=== PATIENT | female | born 1935 | race African-American/Black ===

== ENCOUNTER → 2016-08-17 | Outpatient (CLI) | payer MEDICARE, OTHER ==
--- NOTE | 2016-08-17 16:39 | WOMENS IMAGING REPORT ---
EXAM DESCRIPTION: BILAT SCREENING MAMMO W/CAD COMPLETED DATE/TIME: 08/17/2016 2:35 pm REASON FOR STUDY: Z12.31, ROUTINE SCREENING MAMMO Z12.31 ENCNTR SCREEN MAMMOGRAM FOR MALIGNANT NEOP LASM OF BARRY COMPARISON: 2009 to 2015 TECHNIQUE: Standard craniocaudal and mediolateral oblique views of each breast recorded using Swift Identitya l acquisition. LIMITATIONS: None. FINDINGS: No masses, calcifications or architectural distortion. No areas of suspicion. Read with the assistance of CAD. .[facility] - R2 Cenova Version 1.3 .[facility] - R2 Cenova Version 1.3 .[facility] - R2 Cenova Version 2.4 .[facility] - R2 Cenova Version 2.4 .[facility] - R2 Motor Vehicle Emissions Inspector Version 9.2 IMPRESSION: NORMAL MAMMOGRAM. BIRADS 1. BREAST DENSITY: b. There are scattered areas of fibroglandular density. BIRAD: 1 NEGATIVE RECOMMENDATION: ROUTINE SCREENING COMMENT: The patient has been notified of the results by letter per SA requirements. Additional no tification policies are in place for contacting patient with suspicious or incomplete findings. Quality ID #[id number]: The [employer] recommends an annual screening mammogram for women aged 40 years or over. This facility utilizes a reminder system to ensure that all patients receive reminder letters, and/or direct phone calls for appointments. This includes reminders for routine scr eening mammograms, diagnostic mammograms, or other Breast Imaging Interventions when appropriate. Th is patient will be placed in the appropriate reminder system. The [employer] (ACR) has developed recommendations for screening MRI of the breast s in certain patient populations, to be used in conjunction with mammography. Breast MRI surveillanc e may be appropriate for women with more than 20% lifetime risk of developing breast cancer as deter mined by genetic testing, significant family history of the disease, or history of mantle radiation f or Hodgkins Disease. ACR Practice Guidelines 2008. TECHNICAL DOCUMENTATION: FINDING NUMBER: (1) ASSESSMENT: (1) JOB ID: [id number] [employer]- All Rights Reserved
== END ==
LOC: WI 13:17
PROVIDERS: ATTEND Internal Medicine Geriatric Medicine
DX: Z12.31 Encounter for screening mammogram for malignant neoplasm of breast (principal)
CPT/HCPCS: 77067; G0202

== ENCOUNTER → 2018-01-16 | Outpatient (CLI) | payer MEDICARE, OTHER ==
[2018-01-16 11:01] LABS: INTERNATIONAL RATION (INR) 3.62; PROTHROMBIN TIME 37.8 SEC (11.4-15.4)
== END ==
LOC: OD 10:09
PROVIDERS: ATTEND Internal Medicine Geriatric Medicine
DX: Z51.81 Encounter for therapeutic drug level monitoring (principal); Z79.01 Long term (current) use of anticoagulants
CPT/HCPCS: 36415; 85610

== ENCOUNTER 2018-06-15 07:16 | Emergency (ER) | payer MEDICARE, OTHER ==
[2018-06-15] MEDS ORDERED: ASPIRIN 81 MG TABLET, CHEWABLE PO ONE (08:30)
[2018-06-15 08:58] LABS: ABSOLUTE LYMPHOCYTES (AUTO) 1.5 10^3/uL (0.5-4.7); ABSOLUTE MONOCYTES (AUTO) 0.8 10^3/uL (0.1-1.4); ABSOLUTE NEUT (AUTO) 5.8 10^3/uL (1.7-8.2); BASOPHILS % (AUTO) 0.3 % (0-2); EOSINOPHILS % (AUTO) 0.3 % (0-6); HEMATOCRIT 34.1 % (36.0-47.0); HEMOGLOBIN 11.6 g/dL (12.0-15.5); LYMPHOCYTES % (AUTO) 18.4 % (13-45); MEAN CORPUSCULAR HEMOGLOBIN 31.3 pg (27.0-33.4); MEAN CORPUSCULAR HGB CONC 33.9 g/dL (32.0-36.0); MEAN CORPUSCULAR VOLUME 92 fl (80-97); MONOCYTES % (AUTO) 9.3 % (3-13); PLATELET COUNT 318 10^3/uL (150-450); RED CELL DISTRIBUTION WIDTH 15.2 % (11.5-14.0); SEGMENTED NEUTROPHILS % (AUTO) 71.7 % (42-78); TOTAL CELLS COUNTED % (AUTO) 100 %; WHITE BLOOD COUNT 8.1 10^3/uL (4.0-10.5)
[2018-06-15 09:06] LABS: ALANINE AMINOTRANSFERASE 16 U/L (9-52); ALKALINE PHOSPHATASE 78 U/L (38-126); ANION GAP 7 (5-19); ASPARTATE AMINO TRANSFERASE 22 U/L (14-36); BILIRUBIN,DIRECT 0.2 mg/dL (0.0-0.4); BILIRUBIN,TOTAL 0.7 mg/dL (0.2-1.3); BLOOD UREA NITROGEN 13 mg/dL (7-20); CALCIUM 10.7 mg/dL (8.4-10.2); CARBON DIOXIDE 32 mmol/L (22-30); CHLORIDE 97 mmol/L (98-107); CREATINE KINASE 107 U/L (30-135); GLUCOSE 155 mg/dL (75-110); POTASSIUM 3.7 mmol/L (3.6-5.0); TOTAL PROTEIN 7.9 g/dL (6.3-8.2)
[2018-06-15 09:17] LABS: CREATINE KINASE MB 0.46 ng/mL (<4.55); NT PRO BNP 265 pg/mL (<450)
--- NOTE | 2018-06-15 09:17 | RADIOLOGY REPORT (SQ) ---
EXAM DESCRIPTION: CHEST SINGLE VIEW COMPLETED DATE/TIME: 06/15/2018 8:55 am REASON FOR STUDY: CHF, upper back pain COMPARISON: Chest films 12/14/2013, 07/15/2010 EXAM PARAMETERS: NUMBER OF VIEWS: One view. TECHNIQUE: Single frontal radiographic view of the chest acquired. RADIATION DOSE: NA LIMITATIONS: None. FINDINGS: LUNGS AND PLEURA: No opacities, masses or pneumothorax. No pleural effusion. MEDIASTINUM AND HILAR STRUCTURES: No masses. Contour normal. HEART AND VASCULAR STRUCTURES: Stable mild cardiomegaly BONES: No acute findings. HARDWARE: None in the chest. OTHER: No other significant finding. IMPRESSION: NO ACUTE RADIOGRAPHIC FINDING IN THE CHEST. TECHNICAL DOCUMENTATION: JOB ID: [id number] [employer]- All Rights Reserved Reading location - IP/workstation name: [email or web address]
[2018-06-15 09:21] LABS: TROPONIN I < 0.012 ng/mL
[2018-06-15 14:08] VITALS: BP 155/72
--- NOTE | 2018-06-15 14:42 | ER Document Report ---
Entered by DRAKE STARR SCRIBE 06/15/18 [id number] Acting as scribe for:LYLE BUSTOS DO ED General - General Chief Complaint: Feet Swelling Stated Complaint: FEET SWELLING Time Seen by Provider: 06/15/18 08:18 Primary Care Provider: OMEGA FERGUSON MD [Primary Care Provider] - Follow up as needed Information source: Patient Notes: 83-year-old female presents to the emergency department today for complaints of upper back pain, neck pain which only occurs with movement of the neck, and "a little chest discomfort". Patient states her legs are swollen bilaterally but goes on to add that they are no more swollen than usual. 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 Patient complains of some shortness of breath but only with exertion. Patient states that if she is not moving she does not have any shortness of breath. Patient also complains of generalized fatigue. Patient denies urinary symptoms including hematuria, dysuria, or urinary frequency. Patient is a somewhat poor historian so history is slightly limited. TRAVEL OUTSIDE OF THE [place] IN LAST 30 DAYS: No - Related Data Allergies/Adverse Reactions: No Known Allergies Allergy (Verified 06/15/18 07:23) Past Medical History - General Information source: Patient, [facility] Records - Social History Smoking Status: Never Smoker Cigarette use (# per day): No Chew tobacco use (# tins/day): No Frequency of alcohol use: None Drug Abuse: None Lives with: Family Family History: Reviewed & Not Pertinent Patient has suicidal ideation: No Patient has homicidal ideation: No - Past Medical History Cardiac Medical History: Reports: Hx Atrial Fibrillation, Hx Congestive Heart Failure, Hx Coronary Artery Disease, Hx Hypercholesterolemia, Hx Hypertension, Hx Pulmonary Embolism, Hx Heart Murmur Pulmonary Medical History: Reports: Hx Pneumonia Endocrine Medical History: Reports: Hx Diabetes Mellitus Type 2 GI Medical History: Reports: Hx Gastroesophageal Reflux Disease, Hx Ulcer Musculoskeletal Medical History: Reports Hx Arthritis - GERNERALIZED, Reports Hx Muscle Weakness - rt arm, Reports Hx Musculoskeletal Trauma, Reports Other - Chronic upper back pain Past Surgical History: Reports: Hx Abdominal Surgery - Right hemicolectomy for tubular adenoma, Hx Cardiac Catheterization, Hx Coronary Stent, Hx Hysterectomy, Hx Oral Surgery, Hx Orthopedic Surgery - knee replacement, foot surgery, Hx Vascular Surgery - IVC filter - Immunizations Immunizations up to date: Yes Hx Diphtheria, Pertussis, Tetanus Vaccination: Yes Review of Systems - Review of Systems Constitutional: No symptoms reported EENT: No symptoms reported Cardiovascular: No symptoms reported Respiratory: No symptoms reported Gastrointestinal: No symptoms reported Genitourinary: denies: Dysuria, Frequency, Hematuria Female Genitourinary: No symptoms reported Musculoskeletal: See HPI, Back pain - upper, Muscle pain, Muscle stiffness, Neck pain Skin: No symptoms reported Hematologic/Lymphatic: No symptoms reported Neurological/Psychological: No symptoms reported -: Yes All other systems reviewed and negative Physical Exam - Vital signs Vitals: Temp Pulse Resp BP Pulse Ox 98.2 F 75 16 141/60 H 97 06/15/18 07:35 06/15/18 07:35 06/15/18 07:35 06/15/18 07:35 06/15/18 07:35 - Notes Notes: PHYSICAL EXAM -Pulse oximeter at bedside shows a saturation of 99% with good waveform on room air, no hypoxia per my interpretation. -Bedside teletypesetter monitor interpretation: Normal sinus rhythm with a rate of 80 per my interpretation. GENERAL: Alert, interacts well. No acute distress. HEAD: Normocephalic, atraumatic. EYES: Pupils equal, round, and reactive to light. Extraocular movements intact. ENT: Oral mucosa moist, tongue midline. NECK: Full range of motion. Supple. Trachea midline. LUNGS: Trace crackles in the lower lung [place] bilaterally. No wheezing or rhonchi. No respiratory distress. HEART: Regular rate and rhythm. 2/6 systolic murmur, no gallops or rubs. ABDOMEN: Soft, non-tender. Non-distended. Bowel sounds present in all 4 quadrants. No guarding, rigidity, or rebound. EXTREMITIES: Moves all 4 extremities spontaneously. 1+ pitting edema at the ankles bilaterally, trace edema proximal to the ankles, radial and dorsalis pedis pulses 2/4 bilaterally. No cyanosis. NEUROLOGICAL: Alert and oriented x3. Normal speech. PSYCH: Normal affect, normal mood. SKIN: Warm and dry. No rashes or lesions noted. Course - Re-evaluation Re-evalutation: 06/15/18 14:19 CBC shows mild anemia with hemoglobin 11.6, CMP grossly unremarkable mildly low sodium 136.0, calcium is elevated at 10.7, glucose is elevated at 155, this is not fasting, troponin is negative x2, proBNP normal at 265, chest x-ray does not show any acute process. Patient is feeling well at this time. Very low suspicion for ongoing ischemic cardiac disease. Patient will be discharged home. As it is Sunday patient was warned not to eat foods that are high in sodium tomorrow such as ham. Patient states that she is only planning on eating a little bit of it. Patient was counseled to not eat any ham tomorrow as she has congestive heart failure. - Vital Signs Vital signs: Temp Pulse Resp BP Pulse Ox 97.9 F 75 19 155/72 H 100 06/15/18 14:03 06/15/18 07:35 06/15/18 14:03 06/15/18 14:03 06/15/18 14:03 - Laboratory Result Diagrams: 06/15/18 08:25 06/15/18 08:25 Laboratory results interpreted by me: 06/15/18 06/15/18 08:25 08:25 RBC 3.70 L Hgb 11.6 L Hct 34.1 L RDW 15.2 H Sodium 136.0 L Chloride 97 L Carbon Dioxide 32 H Est GFR (Non-Af Amer) 52 L Glucose 155 H Calcium 10.7 H - EKG Interpretation by Me Additional EKG results interpreted by me: 06/15/18 14:20 EKG shows sinus rhythm rate of 68, right bundle branch block, no ST segment elevations or depressions, isolated T wave inversions noted in lead III and aVF per my interpretation. Discharge - Discharge Clinical Impression: Neck pain Chest pain Qualifiers: Chest pain type: precordial pain Qualified Code(s): R07.2 - Precordial pain Condition: Stable Disposition: HOME, SELF-CARE Additional Instructions: Today we did not find any signs of heart attack or ongoing heart failure. Please return to the emergency department should you develop increasing shortness of breath, worsening chest pain, difficulty breathing or significantly increased leg swelling. You may take acetaminophen 1000 mg every 6 hours as needed for the pain in your neck. If you develop numbness, tingling or weakness in your arms please return to the emergency department. Referrals: OMEGA FERGUSON MD [Primary Care Provider] - Follow up as needed I personally performed the services described in the documentation, reviewed and edited the documentation which was dictated to the scribe in my presence, and it accurately records my words and actions.
--- NOTE | 2018-06-15 21:03 | EKG REPORT ---
SEVERITY:- ABNORMAL ECG - SINUS RHYTHM RIGHT BUNDLE BRANCH BLOCK : Confirmed by: Coby Hawkins MD 15-Jun-2018 21:03:15
== END 2018-06-15 14:10 | disposition home or self-care (01) ==
LOC: ER 07:16
DX: M54.2 Cervicalgia (principal); R07.2 Precordial pain; M79.89 Other specified soft tissue disorders; M54.6 Pain in thoracic spine; Z86.711 Personal history of pulmonary embolism; Z86.718 Personal history of other venous thrombosis and embolism; Z79.01 Long term (current) use of anticoagulants; R53.83 Other fatigue; I50.9 Heart failure, unspecified; I25.10 Atherosclerotic heart disease of native coronary artery without angina pectoris; I11.0 Hypertensive heart disease with heart failure; E11.9 Type 2 diabetes mellitus without complications
CPT/HCPCS: 93005; 99284; 36415; 82553; 82550; 85025; 80053; 84484; 83880; 71045; 93010; A9270

== ENCOUNTER → 2018-08-07 | Outpatient (CLI) | payer MEDICARE, OTHER | LOC: WI 10:17 | PROVIDERS: ATTEND Internal Medicine Geriatric Medicine | DX: Z12.31 Encounter for screening mammogram for malignant neoplasm of breast (principal) | CPT/HCPCS: 77063; 77067 ==

== ENCOUNTER 2018-11-03 06:56 | Observation (INO) | payer MEDICARE, OTHER ==
[2018-11-03] MEDS ORDERED: EPINEPHRINE INJ/PF 1 MG/1 ML AMPULE IM ONE (07:22)
[2018-11-03] MEDS ORDERED: METHYLPREDNISOLONE INJ 125 MG/2 ML SDV IV ONE (07:23)
[2018-11-03] MEDS ORDERED: DIPHENHYDRAMINE HCL 50 MG/ML VIAL IV ONE ×3 (07:23→11:15)
[2018-11-03] MEDS ORDERED: FAMOTIDINE INJ/PF 20 MG/2 ML SDV IV ONE (07:23)
[2018-11-03] MEDS ORDERED: NORMAL SALINE 250 ML IV PRN ×2 (07:23)
--- NOTE | 2018-11-03 07:26 | ER Document Report ---
ED Medical Screen (RME) - General Chief Complaint: Swelling of Tongue Stated Complaint: TONGUE SWELLING Time Seen by Provider: 11/03/18 07:19 Primary Care Provider: OMEGA FERGUSON MD [Primary Care Provider] - Follow up as needed Notes: 83-year-old female chief complaint of tongue swelling. She states she woke up with a funny feeling in her tongue like it was swollen and then she realized that she was talking strangely as well. She denies difficulty swallowing or breathing, she states she had tongue swelling one time many years ago and she cannot remember how it resolved. She denies being intubated for this. She denies any cardiac history. She denies any itching, rash, or any other allergic symptoms at this time. She is not on lisinopril. TRAVEL OUTSIDE OF THE [place] IN LAST 30 DAYS: No - Related Data Allergies/Adverse Reactions: No Known Allergies Allergy (Verified 06/15/18 07:23) Past Medical History - Past Medical History Cardiac Medical History: Reports: Hx Atrial Fibrillation, Hx Congestive Heart Failure, Hx Coronary Artery Disease, Hx Hypercholesterolemia, Hx Hypertension, Hx Pulmonary Embolism, Hx Heart Murmur Denies: Hx Heart Attack Pulmonary Medical History: Reports: Hx Pneumonia Endocrine Medical History: Reports: Hx Diabetes Mellitus Type 2 Renal/ Medical History: Denies: Hx Peritoneal Dialysis GI Medical History: Reports: Hx Gastroesophageal Reflux Disease, Hx Ulcer Musculoskeltal Medical History: Reports Hx Arthritis - GERNERALIZED, Reports Hx Muscle Weakness - rt arm, Reports Hx Musculoskeletal Trauma Past Surgical History: Reports: Hx Abdominal Surgery - Right hemicolectomy for tubular adenoma, Hx Cardiac Catheterization, Hx Coronary Stent, Hx Hysterectomy, Hx Oral Surgery, Hx Orthopedic Surgery - knee replacement, foot surgery, Hx Vascular Surgery - IVC filter - Immunizations Immunizations up to date: Yes Hx Diphtheria, Pertussis, Tetanus Vaccination: Yes Physical Exam - Vital signs Vitals: Temp Pulse Resp BP Pulse Ox 98.8 F 67 20 154/62 H 97 11/03/18 07:01 11/03/18 07:01 11/03/18 07:01 11/03/18 07:01 11/03/18 07:01 - HEENT Mouth/Lips: Angioedema - There does appear to be angioedema of the tongue with some swelling although this is symmetric. Airway is clear, remaining ENT exam is unremarkable Course - Re-evaluation Re-evalutation: Patient talking funny, appears to have tongue swelling along with the strange manner of speaking, airway is clear, patient in no distress, no wheezing, no rash. Patient has had this 1 time a long time ago. In addition possible allergic reaction coverage, fresh frozen plasma ordered as well, placed on monitor. I have greeted and performed a rapid initial assessment of this patient. A comprehensive ED assessment and evaluation of the patient, analysis of test results and completion of the medical decision making process will be conducted by additional ED providers. - Vital Signs Vital signs: Temp Pulse Resp BP Pulse Ox 98.8 F 67 20 154/62 H 97 11/03/18 07:01 11/03/18 07:01 11/03/18 07:01 11/03/18 07:01 11/03/18 07:01 Doctor's Discharge - Discharge Referrals: OMEGA FERGUSON MD [Primary Care Provider] - Follow up as needed
[2018-11-03 07:37] LABS: ABSOLUTE EOSINOPHILS # (AUTO) 0.2 10^3/uL (0.0-0.6); ABSOLUTE LYMPHOCYTES (AUTO) 1.5 10^3/uL (0.5-4.7); ABSOLUTE MONOCYTES (AUTO) 0.5 10^3/uL (0.1-1.4); ABSOLUTE NEUT (AUTO) 2.9 10^3/uL (1.7-8.2); BASOPHILS % (AUTO) 0.7 % (0-2); EOSINOPHILS % (AUTO) 3.4 % (0-6); HEMATOCRIT 33.6 % (36.0-47.0); HEMOGLOBIN 11.1 g/dL (12.0-15.5); LYMPHOCYTES % (AUTO) 28.8 % (13-45); MEAN CORPUSCULAR HEMOGLOBIN 28.5 pg (27.0-33.4); MEAN CORPUSCULAR HGB CONC 33.2 g/dL (32.0-36.0); MEAN CORPUSCULAR VOLUME 86 fl (80-97); MONOCYTES % (AUTO) 9.1 % (3-13); PLATELET COUNT 298 10^3/uL (150-450); RED BLOOD COUNT 3.91 10^6/uL (3.72-5.28); RED CELL DISTRIBUTION WIDTH 14.3 % (11.5-14.0); TOTAL CELLS COUNTED % (AUTO) 100 %
[2018-11-03 07:45] LABS: INTERNATIONAL RATION (INR) 1.43; PROTHROMBIN TIME 17.5 SEC (11.4-15.4)
--- NOTE | 2018-11-03 08:40 | ER Document Report ---
ED General - General Chief Complaint: Swelling of Tongue Stated Complaint: TONGUE SWELLING Time Seen by Provider: 11/03/18 07:19 Primary Care Provider: OMEGA FERGUSON MD [Primary Care Provider] - Follow up as needed TRAVEL OUTSIDE OF THE [place] IN LAST 30 DAYS: No - HPI Notes: Patient is an 83-year-old female presents emergency department for evaluation of edema in her tongue. She states that she woke this morning and it swollen. She states her voice is different. She denies any difficulty swallowing. No difficulty breathing. She states that she had a similar episode of this in the past, and it resolved, but she cannot remember how it happened. No new medications. She states she been taking her medications as prescribed. - Related Data Allergies/Adverse Reactions: No Known Allergies Allergy (Verified 06/15/18 07:23) Home Medications: Hydralazine, amlodipine/benazepril, fark [employer], metoprolol, warfarin, hydrochlorothiazide Past Medical History - General Information source: Patient, Relative - Social History Smoking Status: Never Smoker Family History: Reviewed & Not Pertinent Patient has suicidal ideation: No Patient has homicidal ideation: No - Past Medical History Cardiac Medical History: Reports: Hx Atrial Fibrillation, Hx Congestive Heart Failure, Hx Coronary Artery Disease, Hx Hypercholesterolemia, Hx Hypertension, Hx Pulmonary Embolism, Hx Heart Murmur Denies: Hx Heart Attack Pulmonary Medical History: Reports: Hx Pneumonia Endocrine Medical History: Reports: Hx Diabetes Mellitus Type 2 Renal/ Medical History: Denies: Hx Peritoneal Dialysis GI Medical History: Reports: Hx Gastroesophageal Reflux Disease, Hx Ulcer Musculoskeletal Medical History: Reports Hx Arthritis - GERNERALIZED, Reports Hx Muscle Weakness - rt arm, Reports Hx Musculoskeletal Trauma Past Surgical History: Reports: Hx Abdominal Surgery - Right hemicolectomy for tubular adenoma, Hx Cardiac Catheterization, Hx Coronary Stent, Hx Hysterectomy, Hx Oral Surgery, Hx Orthopedic Surgery - knee replacement, foot surgery, Hx Vascular Surgery - IVC filter - Immunizations Immunizations up to date: Yes Hx Diphtheria, Pertussis, Tetanus Vaccination: Yes Review of Systems - Review of Systems Constitutional: No symptoms reported EENT: See HPI Cardiovascular: No symptoms reported Respiratory: No symptoms reported Gastrointestinal: No symptoms reported Genitourinary: No symptoms reported Musculoskeletal: No symptoms reported Skin: No symptoms reported Neurological/Psychological: No symptoms reported Physical Exam - Vital signs Vitals: Temp Pulse Resp BP Pulse Ox 98.8 F 67 20 154/62 H 97 11/03/18 07:01 11/03/18 07:01 11/03/18 07:01 11/03/18 07:01 11/03/18 07:01 - Notes Notes: Vital signs reviewed, please refer to chart. Head is normocephalic, atraumatic. Pupils equal round, reactive to light. Tongue has significant sublingual edema. Patient is edentulous. No posterior pharyngeal edema, lip edema, facial edema that I can appreciate. Neck is supple without meningismus. Heart is regular rate and rhythm. Lungs are clear to auscultation bilaterally. Abdomen is soft, nontender, normoactive bowel sounds throughout. Extremities without cyanosis, clubbing. Posterior calves are nontender. Peripheral pulses are equal. Skin is warm and dry. Patient is awake, alert, neurological exam is nonfocal. Course - Re-evaluation Re-evalutation: 11/03/18 08:39 Patient presents emergency department for evaluation. Initial orders as placed after RME note by physician assistant store manager operations. Patient states she is feeling improved, but she continues to have marked swelling. Awaiting FFP administration, we will continue to monitor. 11/03/18 12:30 Right after FFP administration, patient developed itching, and edema of the left eyelid. Her tongue edema has decreased, but it continues. Order placed for Berin[place]. Will contact primary care and anesthesia for admission. 11/03/18 12:[address] Ferguson who agrees with admission. Phone call to anesthesia pending. 11/03/18 12:[address] Banda of anesthesia. He was notified of her findings, including her moderate improvement but remaining edema. He notified me that he would be available if necessary, he should be contacted with any changes. - Vital Signs Vital signs: Temp Pulse Resp BP Pulse Ox 98.4 F 68 15 134/59 H 97 11/03/18 10:58 11/03/18 10:58 11/03/18 10:58 11/03/18 10:58 11/03/18 10:58 - Laboratory Result Diagrams: 11/03/18 07:15 Laboratory results interpreted by me: 11/03/18 11/03/18 11/03/18 07:15 07:15 09:17 Hgb 11.1 L Hct 33.6 L RDW 14.3 H PT 17.5 H 18.2 H APTT 37.0 H Discharge - Discharge Clinical Impression: Angioedema Qualifiers: Encounter type: initial encounter Qualified Code(s): T78.3XXA - Angioneurotic edema, initial encounter Condition: Stable Disposition: ADMITTED OBSERVATION Admitting Provider: Porfirio Unit Admitted: IMCU Referrals: OMEGA FERGUSON MD [Primary Care Provider] - Follow up as needed
[2018-11-03 09:44] LABS: PROTHROMBIN TIME 18.2 SEC (11.4-15.4)
[2018-11-03] MEDS ORDERED: DIPHENHYDRAMINE HCL 50 MG/ML VIAL ONE (11:01)
[2018-11-03] MEDS ORDERED: DISPOSABLE IV ONE (12:30)
[2018-11-03] MEDS ORDERED: C1 ESTERASE INHIBITOR IV ONE (12:30)
[2018-11-03 13:18] LABS: ALBUMIN 3.7 g/dL (3.5-5.0); ALKALINE PHOSPHATASE 98 U/L (38-126); ANION GAP 9 (5-19); ASPARTATE AMINO TRANSFERASE 21 U/L (14-36); BILIRUBIN,DIRECT 0.1 mg/dL (0.0-0.4); BILIRUBIN,TOTAL 0.2 mg/dL (0.2-1.3); BLOOD UREA NITROGEN 18 mg/dL (7-20); CALCIUM 10.1 mg/dL (8.4-10.2); CARBON DIOXIDE 30 mmol/L (22-30); CHLORIDE 99 mmol/L (98-107); GLUCOSE 184 mg/dL (75-110); POTASSIUM 3.8 mmol/L (3.6-5.0); TOTAL PROTEIN 7.7 g/dL (6.3-8.2)
--- NOTE | 2018-11-03 18:48 | PDOC H&P ---
History of Present Illness Admission Date/PCP: 11/03/18 13:05 OMEGA FERGUSON Patient complains of: Tongue swelling History of Present Illness: TICO GONZALEZ is a 83 year old female known to my practice who presented to the ED with complain of worsening swelling of her tongue. Patient reported that after consumption of dinner that included fish and crustacean she felt slight swelling of her tongue but did not seek any medical attention. She went to bed only waking up this morning with severely swollen tongue necessitating her presentation to the ED. Her evaluation at the ED was remarkable for stated swollen tongue necessitating medical intervention including administration of H2 naila, IV Steroid, C1 Esterase inhibitor and Epinephrine. At the time of my bedside evaluation her tongue size has returned to normal and she was able to tolerate oral feeding. She denied any associated chest pain or difficulty with breathing. No nausea, vomiting or abdominal pain. No fever or chills. She reported similar episode in the past but not as severer as her present event. Her morbidities include chronic DVT with recurrent pulmonary embolism, HTN, HLD, CAD, Type 2 DM, Osteoarthritis, Osteopenia, and ongoing anticoagulation with Coumadin. She was advised hospitalization on observation bed for further evaluation and management. Past Medical History Cardiac Medical History: Reports: Congestive Heart Failure, Coronary Artery Disease, DVT, Hyperlipidema, Hypertension, Pulmonary Embolism, Heart Murmur Denies: Myocardial Infarction Pulmonary Medical History: Reports: Pneumonia Endocrine Medical History: Reports: Diabetes Mellitus Type 2 GI Medical History: Reports: Gastroesophageal Reflux Disease Musculoskeltal Medical History: Reports: Arthritis - GERNERALIZED Psychiatric Medical History: Reports: Depression Hematology: Denies: Anemia Past Surgical History Past Surgical History: Reports: Cardiac Catheterization, Coronary Stent, Hysterectomy, Orthopedic Surgery - knee replacement, foot surgery, Vascular Surgery - IVC filter Social History Smoking Status: Never Smoker Frequency of Alcohol Use: None Hx Recreational Drug Use: No Drugs: None Hx Prescription Drug Abuse: No - Advance Directive Resuscitation Status: Full Code Family History Family History: Reviewed & Not Pertinent Parental Family History Reviewed: Yes Children Family History Reviewed: Yes Sibling(s) Family History Reviewed.: Yes Medication/Allergy Home Medications: Amlodipine Besylate/Benazepril [Amlodipine-Benazepril 10-20 mg] 1 cap PO DAILY 11/03/18 Dapagliflozin Propanediol [Farxiga] 5 mg PO DAILY 11/03/18 Hydralazine HCl [Apresoline 50 mg Tablet] 50 mg PO Q12 11/03/18 Hydrochlorothiazide [Hydrodiuril 25 mg Tablet] 25 mg PO DAILY 11/03/18 Metoprolol Tartrate [Lopressor 100 mg Tablet] 100 mg PO Q12 11/03/18 Warfarin Sodium [Coumadin 5 mg Tablet] 5 mg PO DAILY 11/03/18 Allergies/Adverse Reactions: No Known Allergies Allergy (Verified 06/15/18 07:23) Review of Systems Constitutional: ABSENT: chills, fever(s), headache(s), weight gain, weight loss Eyes: ABSENT: visual disturbances Ears: ABSENT: hearing changes Nose, Mouth, and Throat: PRESENT: other - tongue swelling. ABSENT: headache(s), mouth pain, sore throat, vertigo Cardiovascular: ABSENT: chest pain, dyspnea on exertion, edema, orthropnea, palpitations Respiratory: ABSENT: cough, hemoptysis Gastrointestinal: ABSENT: abdominal pain, constipation, diarrhea, hematemesis, hematochezia, nausea, vomiting Genitourinary: ABSENT: dysuria, hematuria Musculoskeletal: ABSENT: joint swelling Integumentary: ABSENT: rash, wounds Neurological: ABSENT: abnormal gait, abnormal speech, confusion, dizziness, focal weakness, syncope Psychiatric: ABSENT: anxiety, depression, homidical ideation, suicidal ideation Endocrine: ABSENT: cold intolerance, heat intolerance, polydipsia, polyuria Hematologic/Lymphatic: ABSENT: easy bleeding, easy bruising, lymphadenopathy Allergic/Immunologic: ABSENT: seasonal rhinorrhea Physical Exam Vital Signs: Temp Pulse Resp BP Pulse Ox 98.1 F 71 17 141/57 H 98 11/03/18 16:17 11/03/18 16:17 11/03/18 16:17 11/03/18 16:17 11/03/18 16:17 Intake & Output 11/02/18 11/03/18 11/04/18 06:59 06:59 06:59 Intake Total 659 Balance 659 Weight 92.9 kg General appearance: PRESENT: no acute distress, obese Head exam: PRESENT: atraumatic, normocephalic Eye exam: PRESENT: conjunctiva pink, EOMI, PERRLA. ABSENT: scleral icterus Ear exam: PRESENT: normal external ear exam Mouth exam: PRESENT: moist Teeth exam: PRESENT: edentulous Neck exam: PRESENT: full ROM. ABSENT: carotid bruit, JVD, lymphadenopathy, thyromegaly Respiratory exam: PRESENT: clear to auscultation kathya Cardiovascular exam: PRESENT: RRR. ABSENT: diastolic murmur, rubs, systolic murmur Vascular exam: ABSENT: pallor GI/Abdominal exam: PRESENT: normal bowel sounds, soft. ABSENT: distended, guarding, mass, organolmegaly, rebound, tenderness Rectal exam: PRESENT: deferred Extremities exam: ABSENT: pedal edema Musculoskeletal exam: PRESENT: deformity - related to multiple jointds involvement with arthritis, normal inspection Neurological exam: PRESENT: alert, awake, oriented to person, oriented to place, oriented to time, oriented to situation, CN II-XII grossly intact. ABSENT: motor sensory deficit Psychiatric exam: PRESENT: appropriate affect, normal mood. ABSENT: homicidal ideation, suicidal ideation Skin exam: PRESENT: dry, warm Results Laboratory Results: 11/03/18 07:15 11/03/18 07:15 11/03/18 11/03/18 11/03/18 07:15 07:15 07:25 WBC 5.0 RBC 3.91 Hgb 11.1 L Hct 33.6 L MCV 86 MCH 28.5 MCHC 33.2 RDW 14.3 H Plt Count 298 Seg Neutrophils % 58.0 Sodium 137.6 Potassium 3.8 Chloride 99 Carbon Dioxide 30 Anion Gap 9 BUN 18 Creatinine 1.14 Est GFR ( Amer) 55 L Glucose 184 H Calcium 10.1 Total Bilirubin 0.2 AST 21 Alkaline Phosphatase 98 Total Protein 7.7 Albumin 3.7 Blood Type B POSITIVE Antibody Screen NEGATIVE Assessment & Plan - Diagnosis (1) Angioedema Qualifiers: Encounter type: initial encounter Qualified Code(s): T78.3XXA - Angioneurotic edema, initial encounter Is this a current diagnosis for this admission?: Yes Plan: See admitting attending physician orders for details about care plan. (2) Chronic deep vein thrombosis (DVT) of lower extremity Qualifiers: Laterality: unspecified laterality Is this a current diagnosis for this admission?: Yes Plan: See admitting attending physician orders for details about care plan. (3) Chronic pulmonary embolism Qualifiers: Acute cor pulmonale presence: without acute cor pulmonale Is this a current diagnosis for this admission?: Yes Plan: See admitting attending physician orders for details about care plan. (4) Diabetes mellitus Qualifiers: Diabetes mellitus type: type 2 Diabetes mellitus [facility] insulin use: without [facility] use Is this a current diagnosis for this admission?: Yes Plan: See admitting attending physician orders for details about care plan. (5) HTN (hypertension) Qualifiers: Hypertension type: essential hypertension Qualified Code(s): I10 - Essential (primary) hypertension Is this a current diagnosis for this admission?: Yes Plan: See admitting attending physician orders for details about care plan. (6) HLD (hyperlipidemia) Qualifiers: Hyperlipidemia type: unspecified Qualified Code(s): E78.5 - Hyperlipidemia, unspecified Is this a current diagnosis for this admission?: Yes Plan: See admitting attending physician orders for details about care plan. (7) Osteoarthritis involving multiple joints on both sides of body Is this a current diagnosis for this admission?: Yes Plan: See admitting attending physician orders for details about care plan. - Time Time Spent: 50 to 70 Minutes Medications reviewed and adjusted accordingly: Yes Anticipated discharge: Home with Homehealth Within: Other - Inpatient Certification Based on my medical assessment, after consideration of the patient's comorbidities, presenting symptoms, or acuity I expect that the services needed warrant INPATIENT care.: Yes I certify that my determination is in accordance with my understanding of Medicare's requirements for reasonable and necessary INPATIENT services [42 CFR 412.3e].: Yes Medical Necessity: Significant Comorbidiites Make Outpatient Treatment Too Risky, Need Close Monitoring Due to Risk of Patient Decompensation, Need For Continuous Telemetry Monitoring, Risk of Complication if Not Cared For in Hospital, Risk of Diagnosis Which Will Require Inpatient Eval/Care/Monitoring Post Hospital Care: D/C Bill Peddler Documentation - Plan Summary Plan Summary: See admitting attending physician orders for details about care plan.
[2018-11-03] MEDS ORDERED: WARFARIN SODIUM 2.5 MG TABLET PO SCH (22:00)
[2018-11-03] MEDS: DIPHENHYDRAMINE HCL 25 MG/10 ML UDC PO SCH (22:09)
[2018-11-03] MEDS: METOPROLOL TARTRATE 100 MG TABLET PO SCH (22:09)
[2018-11-03] MEDS: FAMOTIDINE 20 MG TABLET PO SCH (22:09)
[2018-11-03] MEDS: HYDRALAZINE HCL 50 MG TABLET PO SCH (22:09)
[2018-11-04 08:58] LABS: APPEARANCE,URINE CLOUDY; BILIRUBIN,URINE NEGATIVE (NEGATIVE); COLOR,URINE YELLOW; GLUCOSE, URINE >=500 mg/dL (NEGATIVE); KETONES,URINE NEGATIVE (NEGATIVE); LEUKOCYTE ESTERASE,URINE LARGE (NEGATIVE); NITRITE,URINE NEGATIVE (NEGATIVE); PROTEIN,URINE NEGATIVE (NEGATIVE); URINE SPECIFIC GRAVITY 1.027; UROBILINOGEN,URINE NEGATIVE mg/dL (<2.0)
[2018-11-04] MEDS: HYDRALAZINE HCL 50 MG TABLET PO SCH (09:29)
[2018-11-04] MEDS: METOPROLOL TARTRATE 100 MG TABLET PO SCH (09:29)
[2018-11-04] MEDS: FAMOTIDINE 20 MG TABLET PO SCH (09:30)
[2018-11-04] MEDS: DIPHENHYDRAMINE HCL 25 MG/10 ML UDC PO SCH (09:30)
[2018-11-04] MEDS ORDERED: (PENDING PHARMACY ID) (Dapagliflozin Propanediol [Farxiga] 5 MG) PO SCH (10:00)
[2018-11-04] MEDS ORDERED: AMLODIPINE BESYLATE 10 MG TABLET PO SCH (10:00)
[2018-11-04] MEDS ORDERED: HYDROCHLOROTHIAZIDE 25 MG TABLET PO SCH (10:00)
[2018-11-04] MEDS ORDERED: VALSARTAN 160 MG TABLET PO SCH (10:00)
[2018-11-04 11:22] VITALS: BP 129/63
[2018-11-04] MEDS ORDERED: WARFARIN SODIUM 5 MG TABLET PO SCH (22:00)
--- NOTE | 2018-11-05 20:39 | PDOC DISCHARGE SUMMARY ---
General - Admit/Disc Date/PCP Admission Date/Primary Care Provider: 11/03/18 13:05 OMEGA FERGUSON Discharge Date: 11/04/18 - Discharge Diagnosis (1) Angioedema Is this a current diagnosis for this admission?: Yes (2) Chronic deep vein thrombosis (DVT) of lower extremity Is this a current diagnosis for this admission?: Yes (3) Chronic pulmonary embolism Is this a current diagnosis for this admission?: Yes (4) Diabetes mellitus Is this a current diagnosis for this admission?: Yes (5) HTN (hypertension) Is this a current diagnosis for this admission?: Yes (6) HLD (hyperlipidemia) Is this a current diagnosis for this admission?: Yes (7) Osteoarthritis involving multiple joints on both sides of body Is this a current diagnosis for this admission?: Yes - Additional Information Resuscitation Status: Full Code Discharge Diet: Cardiac, Diabetic Discharge Activity: Activity As Tolerated Prescriptions: Amlodipine Besylate/Valsartan [Amlodipine-Valsartan 10-160 mg] 1 each PO DAILY #30 tablet Home Medications: Dapagliflozin Propanediol [Farxiga] 5 mg PO DAILY 11/03/18 Hydralazine HCl [Apresoline 50 mg Tablet] 50 mg PO Q12 11/03/18 Hydrochlorothiazide [Hydrodiuril 25 mg Tablet] 25 mg PO DAILY 11/03/18 Metoprolol Tartrate [Lopressor 100 mg Tablet] 100 mg PO Q12 11/03/18 Warfarin Sodium [Coumadin 5 mg Tablet] 5 mg PO DAILY 11/03/18 Amlodipine Besylate/Valsartan [Amlodipine-Valsartan 10-160 mg] 1 each PO DAILY #30 tablet 11/04/18 Warfarin Sodium [Coumadin 2.5 mg Tablet] 2.5 mg PO SUTUTHSA tablet 11/04/18 Warfarin Sodium [Coumadin 5 mg Tablet] 5 mg PO MOWEFR tablet 11/04/18 History of Present Illness History of Present Illness: TICO GONZALEZ is a 83 year old female known to my practice who presented to the ED with complain of worsening swelling of her tongue. Patient reported that after consumption of dinner that included fish and crustacean she felt slight swelling of her tongue but did not seek any medical attention. She went to bed only waking up this morning with severely swollen tongue necessitating her presentation to the ED. Her evaluation at the ED was remarkable for stated swollen tongue necessitating medical intervention including administration of H2 naila, IV Steroid, C1 Esterase inhibitor and Epinephrine. At the time of my bedside evaluation her tongue size has returned to normal and she was able to tolerate oral feeding. She denied any associated chest pain or difficulty with breathing. No nausea, vomiting or abdominal pain. No fever or chills. She reported similar episode in the past but not as severer as her present event. Her morbidities include chronic DVT with recurrent pulmonary embolism, Tpye 2 DM, HTN, HLD, CAD, Osteoarthritis, Osteopenia, and ongoing anticoagulation with Coumadin. She was advised hospitalization on observation bed for further evaluation and management. Hospital Course Hospital Course: Patient was admitted for angioedema involving her tongue with probable etiology related to her anti hypertensive medication, Benazepril. She was appropriately and adequately treated with resolution of her symptoms. She was able to tolerate oral feeding and breath without any problem. She will be discharged home today with discontinuation of her Amlodipine/Benazepril and started on Amlodipine/Valsartan for her blood pressure management. She will follow up in the office as instructed upon discharge. Physical Exam Vital Signs: Temp Pulse Resp BP Pulse Ox 98.5 F 65 18 150/56 H 99 11/04/18 08:35 11/04/18 08:35 11/04/18 08:35 11/04/18 08:35 11/04/18 08:35 Intake & Output 11/03/18 11/04/18 11/05/18 06:59 06:59 06:59 Intake Total 959 Balance 959 Weight 92.5 kg General appearance: PRESENT: no acute distress, obese Head exam: PRESENT: atraumatic, normocephalic Eye exam: PRESENT: conjunctiva pink. ABSENT: scleral icterus Ear exam: PRESENT: normal external ear exam Mouth exam: PRESENT: moist Teeth exam: PRESENT: edentulous Respiratory exam: PRESENT: clear to auscultation kathya Cardiovascular exam: PRESENT: RRR. ABSENT: diastolic murmur, rubs, systolic murmur Vascular exam: ABSENT: pallor GI/Abdominal exam: PRESENT: normal bowel sounds, soft. ABSENT: distended, guarding, mass, organolmegaly, rebound, tenderness Rectal exam: PRESENT: deferred Extremities exam: ABSENT: pedal edema Musculoskeletal exam: PRESENT: deformity - related to multiple joints involvement with arthritis. Neurological exam: PRESENT: alert, awake, oriented to person, oriented to place, oriented to time, oriented to situation, CN II-XII grossly intact. ABSENT: motor sensory deficit Psychiatric exam: PRESENT: appropriate affect, normal mood. ABSENT: homicidal ideation, suicidal ideation Skin exam: PRESENT: dry, warm Results Laboratory Results: 11/03/18 07:15 11/03/18 07:15 11/03/18 11/04/18 07:15 08:30 Sodium 137.6 Potassium 3.8 Chloride 99 Carbon Dioxide 30 Anion Gap 9 BUN 18 Creatinine 1.14 Est GFR ( Amer) 55 L Glucose 184 H Calcium 10.1 Total Bilirubin 0.2 AST 21 Alkaline Phosphatase 98 Total Protein 7.7 Albumin 3.7 Urine Color YELLOW Urine Appearance CLOUDY Urine pH 5.0 Ur Specific Minto 1.027 Urine Protein NEGATIVE Urine Glucose (UA) >=500 H Urine Ketones NEGATIVE Urine Blood MODERATE H Urine Nitrite NEGATIVE Ur Leukocyte Esterase LARGE H Urine WBC (Auto) >182 Urine RBC (Auto) 13 Qualifiers - * PATIENT BEING DISCHARGED WITH ANY OF THE FOLLOWING DIAGNOSIS: No Acute Heart Failure - Is this a Heart Failure Patient?: No Plan Discharge Plan: D/C home today. Follow up in the office as instructed upon discharge.
== END 2018-11-04 11:39 | disposition home or self-care (01) ==
LOC: ER 06:56 → EH 13:05 → 3N 15:48
PROVIDERS: ADMIT Internal Medicine Geriatric Medicine; ATTEND Internal Medicine Geriatric Medicine
DX: T78.3XXA Angioneurotic edema, initial encounter (principal); I82.509 Chronic embolism and thrombosis of unspecified deep veins of unspecified lower extremity; I27.82 Chronic pulmonary embolism; E11.9 Type 2 diabetes mellitus without complications; E78.5 Hyperlipidemia, unspecified; M15.9 Polyosteoarthritis, unspecified; I11.0 Hypertensive heart disease with heart failure; I50.9 Heart failure, unspecified; Z79.899 Other long term (current) drug therapy; I25.10 Atherosclerotic heart disease of native coronary artery without angina pectoris; M85.80 Other specified disorders of bone density and structure, unspecified site; Z79.01 Long term (current) use of anticoagulants; Z95.5 Presence of coronary angioplasty implant and graft; Z90.49 Acquired absence of other specified parts of digestive tract; Z96.659 Presence of unspecified artificial knee joint
CPT/HCPCS: 96376; 99284; 96361; 96374; 96375; 86900; 86901; 36415; 87086; 36430; 86850; 82962; 85025; 85610; 85730; 87088; 80053; 81001; 87186; G0378 ×2; P9017; A9270 ×11; J1200; J0171; J2930; J7050; J3490; S0028; J0597

== ENCOUNTER → 2019-03-12 | Outpatient (CLI) | payer MEDICARE, OTHER ==
--- NOTE | 2019-03-12 13:56 | RADIOLOGY REPORT (SQ) ---
EXAM DESCRIPTION: MRI HEAD COMBO COMPLETED DATE/TIME: 03/12/2019 1:19 pm REASON FOR STUDY: OTHER VISUAL DISTURBANCES;OTHER LOCALIZED VISUAL F H53.8 OTHER VISUAL DISTURBANCE S H53.453 OTHER LOCALIZED VISUAL FIELD DEFECT, BILATERAL COMPARISON: CT cervical spine 09/15/2015 TECHNIQUE: Multiplanar imaging includes noncontrasted T1, T2, FLAIR, diffusion with ADC map and post gadolinium contrast T1 sequences. Additional small [id number] imaging through the orbits including axial and coronal T2 and axial an d coronal pre and postcontrast T1 weighted images. Images stored on PACS. CONTRAST TYPE AND DOSE: 15 mL Prohance. RENAL FUNCTION: Not indicated. ACR Type II contrast agent associated with few, if any, unconfounded cases of NSF LIMITATIONS: None. FINDINGS: ANATOMY: No developmental anomalies. Normal vascular flow voids. Pituitary fossa normal. CSF SPACES: Normal in size and contour. No hemorrhage. Benign ossification of the anterior falx CEREBRUM: Sulci and gyri normal in size and contour. Normal white matter signal on FLAIR imaging. No evidence of hemorrhage, mass, or extraaxial fluid collection. No abnormal enhancement post contrast. POSTERIOR FOSSA: Tiny chronic appearing lacunar infarct inferior left cerebellar hemisphere. No acut e ischemic change. No hemorrhage. No edema, masses, or mass effect. Internal auditory canals, cerebe llopontine angles, mastoids normal. No enhancing lesions. No abnormal enhancement post contrast. DIFFUSION IMAGING: Negative for acute or subacute infarction. ORBITS: Dysconjugate gaze on axial T2 image 09/09. Post right cataract surgery. Globes are otherwise symmetric. No intra or extraconal masses or enhancement within the orbit. Optic nerves are normal. Lacrimal ap paratus normal. No abnormal masses or enhancement along the optic nerve/optic radiation or along expected course of c ranial nerves 3-6. No brainstem abnormalities. No occipital cortical abnormality. PARANASAL SINUSES: No fluid levels. Mucosa normal. OTHER: No other significant finding. 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 Dysconjugate gaze, old right cataract surgery. No other significant findings. No MR evidence of acute ischemic change. No brain parenchymal masses or enhancement EVIDENCE OF ACUTE STROKE: NO. TECHNICAL DOCUMENTATION: JOB ID: [id number] [employer]- All Rights Reserved Reading location - IP/workstation name: [email or web address]
== END ==
LOC: RAD 11:53
PROVIDERS: ATTEND Ophthalmology
DX: H53.8 Other visual disturbances (principal); H53.453 Other localized visual field defect, bilateral
CPT/HCPCS: 70553; A9576; 82565

== ENCOUNTER 2019-05-13 08:49 | Day surgery (SDC) | payer MEDICARE, OTHER ==
[~2019-05-13 08:49] MED LIST: BUPIVACAINE HCL 0.75% INJ/PF (7.5 MG/1 ML) 10 ML SDV OS PRN; CHONDR SU A NA/HYALUR INTRAOC KIT (SURGICARE) ONE; EPINEPHRINE INJ/PF 1 MG/1 ML AMPULE ONE; KETOROLAC TROMETHAMINE 0.45% 4 DROP/0.4 ML DROPERETTE OS PRN; LIDOCAINE 1% INJ-PF (10 MG/ML) 30 ML SDV ONE; LIDOCAINE 4% INJ/PF (40 MG/ML) 5 ML AMPUL OS PRN
[2019-05-13] MEDS: TROPICAMIDE 1% OPH SOLN 15 ML OS PRN ×3 (10:15→10:36)
[2019-05-13] MEDS: BESIFLOXACIN HCL 0.6% OPH SUSP 5 ML BOTTLE OS PRN ×4 (10:15→10:56)
[2019-05-13] MEDS: CYCLOPENTOLATE 0.2%/PHENYLEPHRINE 1% OPH SOLN 2 ML OS PRN ×3 (10:15→10:36)
[2019-05-13] MEDS: TETRACAINE HCL 0.5% OPH SOLN 4 ML OS PRN ×2 (10:15→10:38)
[2019-05-13] MEDS ORDERED: MIDAZOLAM 2 MG/2 ML INJ ONE (10:21)
[2019-05-13] MEDS: DORZOLAMIDE HCL 2%/TIMOLOL MALEAT 0.5% OPH SOLN 10 ML OS PRN ×2 (10:56)
--- NOTE | 2019-05-13 12:39 | Operative Report ---
Operative Report-[facility] Operative Report: DATE OF SURGERY: 05/13/2019 PREOPERATIVE DIAGNOSIS: CATARACT, LEFT EYE. POSTOPERATIVE DIAGNOSIS: CATARACT, LEFT EYE. PROCEDURE PERFORMED: PHACOEMULSIFICATION WITH POSTERIOR CHAMBER INTRAOCULAR LENS, LEFT EYE. Intraocular Lens Model : SN 60 WF 23.5 Total Phaco Time: 10.35 CDE SURGEON: AROLDO CAMPBELL MD ANESTHESIA: TOPICAL WITH MAC. INDICATIONS FOR SURGERY: Difficultly driving at night PROCEDURE: The patient was brought to the Operating Room and placed on the operative table. Following tetracaine drops, topical anesthesia was administered. This consisted of instrument wipe pledgets soaked in a solution of 4% Xylocaine mixed with 0.75% Marcaine in a 1:2 ratio. A 2 x 1 cm pledget was placed in the superior fornix. A 1 x 1 cm pledget was placed in the inferior fornix. The eye was patched shut for 5 minutes. The patch was removed. The eye was sterilely prepped and draped in the usual manner. Lid speculum was placed in the eye. The pledgets were removed. 4-0 black silk sutures were placed around the superior and the inferior rectus muscles to be used as traction. A conjunctival peritomy was made at the 10 o'clock position. Hemostasis was obtained with bipolar cautery. A posterior limbal groove was created using a crescent knife and dissected anteriorly towards the cornea. A sharp point blade was used to create a paracentesis site at the 2 o'clock position. 0.2 cc non preserved Lidocaine was injected into the anterior chamber. A 2.4 mm keratome was used to enter the anterior chamber through the groove. Viscoelastic was injected into the anterior chamber. An anterior capsulotomy was performed using Utrata forceps in a capsulorrhexis fashion. Hydrodissection and hydrodelineation were performed. Phacoemulsification was performed in [id number] technique. Following this, the I/A unit was used to remove residual cortex. Viscoelastic was injected into the capsular bag. The Intraocular lens was placed in the capsular bag. The I/A unit was used to remove residual viscoelastic. The wound was seen to be watertight under high and low pressure, and no sutures were placed. The intraocular lens was well centered. The pressure was adjusted in the eye to normal pressure. The 4-0 black silk sutures and lid speculum were removed. The eye was shielded after Besivance,prednisolone, and Cosopt drops were placed. The patient tolerated the procedure well and was sent to the Recovery Room in good condition.
== END 2019-05-13 11:57 | disposition home or self-care (01) ==
LOC: SC 08:49
PROVIDERS: ATTEND Ophthalmology
DX: H25.812 Combined forms of age-related cataract, left eye (principal); H47.291 Other optic atrophy, right eye; H53.453 Other localized visual field defect, bilateral; H40.021 Open angle with borderline findings, high risk, right eye; E11.3293 Type 2 diabetes mellitus with mild nonproliferative diabetic retinopathy without macular edema, bilateral; H40.032 Anatomical narrow angle, left eye; Z96.1 Presence of intraocular lens; H04.123 Dry eye syndrome of bilateral lacrimal glands; Z79.82 Long term (current) use of aspirin; Z79.899 Other long term (current) drug therapy; Z79.01 Long term (current) use of anticoagulants; Z79.4 Long term (current) use of insulin; Z79.84 Long term (current) use of oral hypoglycemic drugs; E78.00 Pure hypercholesterolemia, unspecified; Z86.718 Personal history of other venous thrombosis and embolism; I11.0 Hypertensive heart disease with heart failure; I50.9 Heart failure, unspecified
CPT/HCPCS: 82962; 00142; 66984; V2632; J2250; J3490 ×5; A9270; J0171; 142

== ENCOUNTER 2019-09-13 07:31 | Emergency (ER) | payer MEDICARE, OTHER ==
--- NOTE | 2019-09-13 11:40 | RADIOLOGY REPORT (SQ) ---
EXAM DESCRIPTION: CT HEAD WITHOUT IMAGES COMPLETED DATE/TIME: 09/13/2019 11:20 am REASON FOR STUDY: Weakness/dizziness COMPARISON: None. TECHNIQUE: Axial images acquired through the brain without intravenous contrast. Images reviewed wi th bone, brain and subdural windows. Additional sagittal and coronal reconstructions were generated. Images stored on PACS. All CT scanners at this facility use dose modulation, iterative reconstruction, and/or weight based d osing when appropriate to reduce radiation dose to as low as reasonably achievable (ALARA). [facility]: Dose Right [facility]: CareDose [facility]: Dose Right [facility]: Teradose 4D [facility]: [employer] RADIATION DOSE: CT Rad equipment meets quality standard of care and radiation dose reduction techniq ues were employed. CTDIvol: 53.2 mGy. DLP: 1097 mGy-cm.mGy. LIMITATIONS: None. FINDINGS: VENTRICLES: Prominent. CEREBRUM: No masses. No hemorrhage. No midline shift. Areas of low density in the white matter mos t likely due to chronic micro-vascular ischemic change. No evidence for acute infarction. CEREBELLUM: No masses. No hemorrhage. No alteration of density. No evidence for acute infarction. EXTRAAXIAL SPACES: Age-related involutional change. No fluid collections. No masses. ORBITS AND GLOBE: No intra- or extraconal masses. Normal contour of globe without masses. CALVARIUM: No fracture. PARANASAL SINUSES: No fluid or mucosal thickening. SOFT TISSUES: No mass or hematoma. OTHER: No other significant finding. IMPRESSION: CHRONIC CHANGES OF ATROPHY AND MICROVASCULAR ISCHEMIA. NO ACUTE PROCESS. EVIDENCE OF ACUTE STROKE: NO. TECHNICAL DOCUMENTATION: JOB ID: [id number] Quality ID # [id number]: Final reports with documentation of one or more dose reduction techniques (e.g., Au tomated exposure control, adjustment of the mA and/or kV according to patient size, use of iterative reconstruction technique) 2010 [employer]- All Rights Reserved Reading location - IP/workstation name: [email or web address]
--- NOTE | 2019-09-13 11:40 | RADIOLOGY REPORT (SQ) ---
EXAM DESCRIPTION: CT LUMBAR SPINE WITHOUT IMAGES COMPLETED DATE/TIME: 09/13/2019 11:20 am REASON FOR STUDY: Low back pain, right-sided radiculopathy COMPARISON: None. TECHNIQUE: Axial images acquired through the lumbar spine without intravenous contrast. Images revi ewed with lung, soft tissue and bone windows. Reconstructed coronal and sagittal MPR images reviewed . All images stored on PACS. All CT scanners at this facility use dose modulation, iterative reconstruction, and/or weight based d osing when appropriate to reduce radiation dose to as low as reasonably achievable (ALARA). [facility]: Dose Right [facility]: CareDose [facility]: Dose Right [facility]: Teradose 4D [facility]: [employer]: [employer] RADIATION DOSE: mGy. LIMITATIONS: None. FINDINGS: SEGMENTATION: Normal. No transitional anatomy. ALIGNMENT: MINIMAL DEGENERATIVE ANTEROLISTHESIS L5 ON S1. VERTEBRAL BODIES: No fractures. No dislocation. No acute findings. DISCS: Multilevel degenerative disc disease with vacuum phenomena broad-based bulge and exit foramina l narrowing. Multilevel spinal stenosis most marked at L4-5. PEDICLES, TRANSVERSE PROCESSES: No fractures. No dislocation. No acute findings. FACETS, POSTERIOR ELEMENTS: No fractures. No dislocation. No spinal stenosis. HARDWARE: Vena caval umbrella. VISUALIZED RIBS: No fractures. SOFT TISSUES: No significant or acute finding in adjacent soft tissues. OTHER: No other significant finding. IMPRESSION: Multilevel degenerative disc disease with spinal stenosis and exit foraminal stenosis. No compression fractures. Vena caval umbrella present. COMMENT: If there is no management plan for the vena caval umbrella, consider appointment with inter ventional radiology. TECHNICAL DOCUMENTATION: JOB ID: [id number] Quality ID # [id number]: Final reports with documentation of one or more dose reduction techniques (e.g., Au tomated exposure control, adjustment of the mA and/or kV according to patient size, use of iterative reconstruction technique) 2010 [employer]- All Rights Reserved Reading location - IP/workstation name: [email or web address]
[2019-09-13 11:47] LABS: ABSOLUTE LYMPHOCYTES (AUTO) 1.1 10^3/uL (0.5-4.7); ABSOLUTE MONOCYTES (AUTO) 0.5 10^3/uL (0.1-1.4); ABSOLUTE NEUT (AUTO) 3.8 10^3/uL (1.7-8.2); BASOPHILS % (AUTO) 0.6 % (0-2); EOSINOPHILS % (AUTO) 0.6 % (0-6); HEMATOCRIT 34.3 % (36.0-47.0); HEMOGLOBIN 11.5 g/dL (12.0-15.5); LYMPHOCYTES % (AUTO) 20.3 % (13-45); MEAN CORPUSCULAR HEMOGLOBIN 29.7 pg (27.0-33.4); MEAN CORPUSCULAR HGB CONC 33.7 g/dL (32.0-36.0); MEAN CORPUSCULAR VOLUME 88 fl (80-97); MONOCYTES % (AUTO) 9.5 % (3-13); PLATELET COUNT 257 10^3/uL (150-450); RED BLOOD COUNT 3.88 10^6/uL (3.72-5.28); RED CELL DISTRIBUTION WIDTH 14.3 % (11.5-14.0); TOTAL CELLS COUNTED % (AUTO) 100 %; WHITE BLOOD COUNT 5.5 10^3/uL (4.0-10.5)
--- NOTE | 2019-09-13 11:56 | EKG REPORT ---
SEVERITY:- ABNORMAL ECG - SINUS RHYTHM RIGHT BUNDLE BRANCH BLOCK : Confirmed by: Savage Eric MD 13-Sep-2019 11:55:14
[2019-09-13 12:13] LABS: ALBUMIN 3.9 g/dL (3.5-5.0); ALKALINE PHOSPHATASE 84 U/L (38-126); ANION GAP 10 (5-19); ASPARTATE AMINO TRANSFERASE 20 U/L (14-36); BILIRUBIN,TOTAL 0.7 mg/dL (0.2-1.3); BLOOD UREA NITROGEN 15 mg/dL (7-20); CALCIUM 10.3 mg/dL (8.4-10.2); CARBON DIOXIDE 26 mmol/L (22-30); CHLORIDE 101 mmol/L (98-107); GLUCOSE 246 mg/dL (75-110); POTASSIUM 3.8 mmol/L (3.6-5.0); TOTAL PROTEIN 7.9 g/dL (6.3-8.2)
--- NOTE | 2019-09-13 15:00 | ER Document Report ---
ED General - General Chief Complaint: Back Pain Stated Complaint: BACK PAIN Time Seen by Provider: 09/13/19 10:05 Primary Care Provider: OMEGA FERGUSON MD [Primary Care Provider] - Follow up as needed Notes: This 84-year-old woman presents to the emergency department with a complaint of feeling poorly, back pain, weakness, and episodic lightheadedness. She went to see her primary care doctor yesterday, however, no changes were made in her medications. The patient states that the symptoms are continuing. She denies fever, nausea vomiting, or dysuria. TRAVEL OUTSIDE OF THE [place] IN LAST 30 DAYS: No - Related Data Allergies/Adverse Reactions: No Known Allergies Allergy (Verified 05/07/19 14:43) Past Medical History - Social History Smoking Status: Never Smoker Family History: Reviewed & Not Pertinent - Past Medical History Cardiac Medical History: Reports: Hx Atrial Fibrillation, Hx Congestive Heart F ailure, Hx Coronary Artery Disease, Hx DVT, Hx Heart Attack, Hx Hypercholesterolemia, Hx Hypertension, Hx Pulmonary Embolism, Hx Heart Murmur Pulmonary Medical History: Reports: Hx Pneumonia Denies: Hx Asthma Neurological Medical History: Denies: Hx Cerebrovascular Accident, Hx Seizures Endocrine Medical History: Reports: Hx Diabetes Mellitus Type 2 Renal/ Medical History: Denies: Hx Peritoneal Dialysis GI Medical History: Reports: Hx Gastroesophageal Reflux Disease, Hx Ulcer. Denies: Hx Hepatitis, Hx Hiatal Hernia Musculoskeletal Medical History: Reports Hx Arthritis - GERNERALIZED, Reports Hx Muscle Weakness - rt arm, Reports Hx Musculoskeletal Trauma Psychiatric Medical History: Reports: Hx Depression Infectious Medical History: Denies: Hx Hepatitis Past Surgical History: Reports: Hx Abdominal Surgery - Right hemicolectomy for tubular adenoma, Hx Cardiac Catheterization, Hx Coronary Stent, Hx Hysterectomy, Hx Oral Surgery, Hx Orthopedic Surgery - knee replacement, foot surgery, Hx Vascular Surgery - IVC filter. Denies: Hx Mastectomy, Hx Pacemaker - Immunizations Immunizations up to date: Yes Hx Diphtheria, Pertussis, Tetanus Vaccination: Yes Review of Systems - Review of Systems Notes: Constitutional: Left-sided weakness HENT: Negative for sore throat. Eyes: Negative for visual changes. Cardiovascular: Negative for chest pain. Respiratory: Negative for shortness of breath. Gastrointestinal: Negative for abdominal pain, vomiting or diarrhea. Genitourinary: Negative for dysuria. Musculoskeletal:+back pain. Skin: Negative for rash. Neurological: Negative for headaches, weakness or numbness. 10 point ROS negative except as marked above and in HPI. Physical Exam - Vital signs Vitals: Temp Pulse Resp BP Pulse Ox 99.4 F 97 16 145/108 H 100 09/13/19 07:36 09/13/19 07:36 09/13/19 07:36 09/13/19 07:36 09/13/19 07:36 - Notes Notes: PHYSICAL EXAMINATION: Physical Exam: General: Well-nourished well-developed 84-year-old female in no acute distress HEENT: NC/AT, pupils equal round and reactive to light, MM moist,nares clear, oropharynx clear, airway patent Neck: supple, no adenopathy, no masses. Good range of motion Lungs: Clear no wheezes rales or rhonchi, good air movement CVS: Regular rate and rhythm no murmur gallop or rub Abdomen: Soft, active, nontender, no masses, no hepatosplenomegaly Ext: No edema, clubbing or cyanosis. Neuro: Alert and responsive, moving all 4 extremities on command, cranial nerves intact, no focal findings Skin: Intact no open lesions, no rash PSYCH: Normal mood, normal affect. Course - Re-evaluation Re-evalutation: 09/13/19 14:59 Patient states that she has done better, she uses something for pain at home, she is not able to tell me what that medication is. Urinalysis is pending at this time and we will await the results of the UA before we make a final disp osition. CT scan of the head and lumbar reveals chronic changes on the CT scan with no signs of stroke. CT of the lumbar spine reveals multilevel DDD with spinal stenosis, no compression fracture seen. - Vital Signs Vital signs: Temp Pulse Resp BP Pulse Ox 98.1 F 77 21 H 145/60 H 99 09/13/19 10:08 09/13/19 10:08 09/13/19 12:01 09/13/19 12:01 09/13/19 12:01 - Laboratory Result Diagrams: 09/13/19 11:34 09/13/19 11:34 Laboratory results interpreted by me: 09/13/19 09/13/19 09/13/19 11:34 11:34 14:49 Hgb 11.5 L Hct 34.3 L RDW 14.3 H Sodium 136.5 L Est GFR (MDRD) Non-Af 53 L Glucose 246 H Calcium 10.3 H Urine Glucose (UA) >=500 H Urine Ketones TRACE H Urine Blood MODERATE H Ur Leukocyte Esterase SMALL H - Diagnostic Test Radiology reviewed: Image reviewed, Reports reviewed - CT head: Chronic changes, no acute stroke, no intracranial hemorrhage. CT lumbar spine: Multilevel degenerative disc disease with spinal stenosis, no compression. - EKG Interpretation by Me EKG shows normal: Sinus rhythm, ST-T Waves - No acute ST or T wave changes, no ischemic changes. Rate: Normal - [address] [place]/QRS: Right axis deviation, RBBB Discharge - Discharge Clinical Impression: Low back pain Qualifiers: Chronicity: chronic Back pain laterality: right Sciatica presence: without sciatica Qualified Code(s): M54.5 - Low back pain Urinary tract infection Qualifiers: Urinary tract infection type: site unspecified Hematuria presence: without hematuria Qualified Code(s): N39.0 - Urinary tract infection, site not specified Diabetes mellitus Qualifiers: Diabetes mellitus type: type 2 Diabetes mellitus half-way insulin use: without half-way use Diabetes mellitus complication status: with neurologic complic ations Diabetes mellitus complication detail: with unspecified neuropathy Qualified Code(s): E11.40 - Type 2 diabetes mellitus with diabetic neuropathy, unspecified Condition: Good Disposition: HOME, SELF-CARE Instructions: Cephalexin ([facility]), Low Back Pain ([facility]), Urinary Tract Infection ([facility]) Additional Instructions: You were seen in the emergency department with a complaint of feeling poorly. You are diagnosed with lower back pain with degenerative disc disease and a urinary tract infection. You are being sent home with Keflex and Naprosyn. Please push fluids and take your medications as prescribed. Follow-up with your primary care doctor as needed. HOME CARE INSTRUCTIONS & INFORMATION: Thank you for choosing us for your medical needs. We hope you're satisfied with the care you received. After you leave, you must properly care for your problem and, at the same time, observe its progress. Any condition can change. Some illnesses can change rapidly over hours or days. If your condition worsens, return to the Emergency Department or see your physician promptly. ABOUT YOUR X-RAYS AND EKG'S: If you had an EKG or X-rays taken, they have been read by the Emergency Physician. The X-rays and EKG's will also be read by a Ra diologist or Grocery Store Clerk within 24 hours. If discrepancies are noted, you will be notified by telephone. Please be certain the ED has a correct telephone number & address where you can be reached. Also, realize that some fractures or abnormalities do not show up on initial X-rays. If your symptoms continue, see your physician. ABOUT YOUR LABORATORY TEST: If you had laboratory tests, the results have been reviewed by the Emergency Physician. Some test results (for example cultures) may not be available for several days. You will be contacted if any test result shows you need additional treatment. Please be certain the ED has a correct telephone number and address where you can be reached. ABOUT YOUR MEDICATIONS: You will receive instructions on how to take your medicine on the prescription label you receive. Additional information may be provided by the Pharmacy. If you have questions afterwards, call the ED for clarification or further instructions. Some prescribed medications may cause drowsiness. Do not perform tasks such as driving a car or operating machinery without consulting your Pharmacist. If you feel you need a refill of pain medication, your condition will need re-evaluation. Please do not call for a refill of any medication. ABOUT YOUR SIGNATURE: Signature of this document acknowledges to followin. Understanding that you received emergency treatment and that you may be released before al medical problems are known or treated. Please be certain the ED has a correct phone number & address where you can be reached. 2. Acknowledgement that you will arrange for follow-up care as recommended. 3. Authorization for the Emergency Physician to provide information to your follow-up Physician in order to maximize your care. AT ANY TIME, IF YOUR SYMPTOMS CHANGE SIGNIFICANTLY OR WORSEN OR YOU DEVELOP NEW SYMPTOMS, RETURN TO THE EMERGENCY DEPARTMENT IMMEDIATELY FOR RE-EVALUATION. OUR GOAL IS TO PROVIDE EXCELLENT MEDICAL CARE! WE HOPE THAT WE HAVE MET YOUR EXPECTATIONS DURING YOUR EMERGENCY DEPARTMENT VISIT AND THAT YOU FEEL YOU HAVE RECEIVED EXCELLENT CARE! Prescriptions: Cephalexin Monohydrate [Keflex 500 mg Capsule] 500 mg PO Q8 10 Days capsule Naproxen [Naprosyn] 500 mg PO BID #20 tablet Referrals: OMEGA FERGUSON MD [Primary Care Provider] - Follow up as needed
[2019-09-13 15:09] LABS: APPEARANCE,URINE SLIGHTLY-CLOUDY; BILIRUBIN,URINE NEGATIVE (NEGATIVE); COLOR,URINE YELLOW; GLUCOSE, URINE >=500 mg/dL (NEGATIVE); KETONES,URINE TRACE mg/dL (NEGATIVE); LEUKOCYTE ESTERASE,URINE SMALL (NEGATIVE); NITRITE,URINE NEGATIVE (NEGATIVE); PROTEIN,URINE NEGATIVE (NEGATIVE); URINE SPECIFIC GRAVITY 1.022; UROBILINOGEN,URINE NEGATIVE mg/dL (<2.0)
[2019-09-13 15:55] VITALS: BP 147/77
== END 2019-09-13 15:55 | disposition home or self-care (01) ==
LOC: ER 07:31
DX: N39.0 Urinary tract infection, site not specified (principal); M54.5 Low back pain; E11.40 Type 2 diabetes mellitus with diabetic neuropathy, unspecified; M54.9 Dorsalgia, unspecified; R53.1 Weakness; R42 Dizziness and giddiness; I50.9 Heart failure, unspecified; I11.0 Hypertensive heart disease with heart failure
CPT/HCPCS: 36415; 70450; 72131; 80053; 81001; 85025; 93005; 93010; 99284

== ENCOUNTER 2019-09-15 10:03 | Emergency (ER) | payer MEDICARE, OTHER ==
--- NOTE | 2019-09-15 11:04 | ER Document Report ---
ED Medical Screen (RME) - General Chief Complaint: Facial Swelling Stated Complaint: SWELLING Time Seen by Provider: 09/15/19 10:53 Primary Care Provider: OMEGA FERGUSON MD [Primary Care Provider] - Follow up as needed Mode of Arrival: Wheelchair Information source: Patient Notes: HPI; 84-year-old female presents to the emergency room complaining of facial and neck swelling that started upon awakening this morning. Was seen here 5 days ago diagnosed with UTI. States is currently taking her Macrobid as prescribed. Is not taking her regular medications. Is unsure what medication she is taking. She denies any shortness of breath, no difficulty breathing. States her lip and neck feels swollen and numb. Denies any new foods no other new medications outside of the Macrobid. States she was fine when she went to bed last night. Spouse agrees that her symptoms started on awakening this morning. PE: Alert and oriented x3. Moderate distress noted. Able to fully smile. No other abnormalities noted on fast exam.: Clear to auscultation without rales, rhonchi, wheezes. Heart irregular rate and rhythm without murmurs, rubs, gallops. I have greeted and performed a rapid initial assessment of this patient. A comprehensive ED assessment and evaluation of the patient, analysis of test results and completion of the medical decision making process will be conducted by additional ED providers. I have specifically instructed the patient or family members with the patient to immediately return to any nursing staff should anything change in the patient's condition or with their chief complaint. TRAVEL OUTSIDE OF THE [place] IN LAST 30 DAYS: No - Related Data Allergies/Adverse Reactions: No Known Allergies Allergy (Verified 05/07/19 14:43) Past Medical History - Past Medical History Cardiac Medical History: Reports: Hx Atrial Fibrillation, Hx Congestive Heart Failure, Hx Coronary Artery Disease, Hx DVT, Hx Heart Attack, Hx Hypercholesterolemia, Hx Hypertension, Hx Pulmonary Embolism, Hx Heart Murmur Pulmonary Medical History: Reports: Hx Pneumonia Denies: Hx Asthma Neurological Medical History: Denies: Hx Cerebrovascular Accident, Hx Seizures Endocrine Medical History: Reports: Hx Diabetes Mellitus Type 2 Renal/ Medical History: Denies: Hx Peritoneal Dialysis GI Medical History: Reports: Hx Gastroesophageal Reflux Disease, Hx Ulcer. Denies: Hx Hepatitis, Hx Hiatal Hernia Musculoskeltal Medical History: Reports Hx Arthritis - GERNERALIZED, Reports Hx Muscle Weakness - rt arm, Reports Hx Musculoskeletal Trauma Psychiatric Medical History: Reports: Hx Depression Infectious Medical History: Denies: Hx Hepatitis Past Surgical History: Reports: Hx Abdominal Surgery - Right hemicolectomy for tubular adenoma, Hx Cardiac Catheterization, Hx Coronary Stent, Hx Hysterectomy, Hx Oral Surgery, Hx Orthopedic Surgery - knee replacement, foot surgery, Hx Vascular Surgery - IVC filter. Denies: Hx Mastectomy, Hx Pacemaker - Immunizations Immunizations up to date: Yes Hx Diphtheria, Pertussis, Tetanus Vaccination: Yes Physical Exam - Vital signs Vitals: Temp Pulse Resp BP Pulse Ox 97.7 F 67 18 116/34 L 100 09/15/19 10:14 09/15/19 10:14 09/15/19 10:14 09/15/19 10:14 09/15/19 10:14 Course - Vital Signs Vital signs: Temp Pulse Resp BP Pulse Ox 97.7 F 67 18 116/34 L 100 09/15/19 10:14 09/15/19 10:14 09/15/19 10:14 09/15/19 10:14 09/15/19 10:14 Doctor's Discharge - Discharge Referrals: OMEGA FERGUSON MD [Primary Care Provider] - Follow up as needed
[2019-09-15 11:48] LABS: ABSOLUTE EOSINOPHILS # (AUTO) 0.1 10^3/uL (0.0-0.6); ABSOLUTE LYMPHOCYTES (AUTO) 1.4 10^3/uL (0.5-4.7); ABSOLUTE MONOCYTES (AUTO) 0.4 10^3/uL (0.1-1.4); ABSOLUTE NEUT (AUTO) 3.4 10^3/uL (1.7-8.2); BASOPHILS % (AUTO) 0.5 % (0-2); HEMATOCRIT 33.2 % (36.0-47.0); HEMOGLOBIN 11.1 g/dL (12.0-15.5); LYMPHOCYTES % (AUTO) 25.5 % (13-45); MEAN CORPUSCULAR HEMOGLOBIN 29.6 pg (27.0-33.4); MEAN CORPUSCULAR HGB CONC 33.4 g/dL (32.0-36.0); MEAN CORPUSCULAR VOLUME 88 fl (80-97); MONOCYTES % (AUTO) 8.3 % (3-13); PLATELET COUNT 283 10^3/uL (150-450); RED BLOOD COUNT 3.76 10^6/uL (3.72-5.28); RED CELL DISTRIBUTION WIDTH 14.4 % (11.5-14.0); SEGMENTED NEUTROPHILS % (AUTO) 63.7 % (42-78); TOTAL CELLS COUNTED % (AUTO) 100 %; WHITE BLOOD COUNT 5.4 10^3/uL (4.0-10.5)
[2019-09-15 12:01] LABS: INTERNATIONAL RATION (INR) 1.18; PROTHROMBIN TIME 15.1 SEC (11.4-15.4)
[2019-09-15 12:06] LABS: ALBUMIN 3.6 g/dL (3.5-5.0); ALKALINE PHOSPHATASE 75 U/L (38-126); ANION GAP 7 (5-19); ASPARTATE AMINO TRANSFERASE 17 U/L (14-36); BILIRUBIN,TOTAL 0.5 mg/dL (0.2-1.3); BLOOD UREA NITROGEN 14 mg/dL (7-20); CALCIUM 9.7 mg/dL (8.4-10.2); CARBON DIOXIDE 26 mmol/L (22-30); CHLORIDE 99 mmol/L (98-107); GLUCOSE 305 mg/dL (75-110); POTASSIUM 3.5 mmol/L (3.6-5.0); TOTAL PROTEIN 7.3 g/dL (6.3-8.2)
--- NOTE | 2019-09-15 12:15 | RADIOLOGY REPORT (SQ) ---
EXAM DESCRIPTION: CT HEAD WITHOUT IMAGES COMPLETED DATE/TIME: 09/15/2019 11:54 am REASON FOR STUDY: facial numbness COMPARISON: 09/13/2019 TECHNIQUE: Axial images acquired through the brain without intravenous contrast. Images reviewed wit h bone, brain and subdural windows. Images stored on PACS. All CT scanners at this facility use dose modulation, iterative reconstruction, and/or weight based d osing when appropriate to reduce radiation dose to as low as reasonably achievable (ALARA). [facility]: Dose Right [facility]: CareDose [facility]: Dose Right [facility]: Teradose 4D [facility]: [employer] RADIATION DOSE: CT Rad equipment meets quality standard of care and radiation dose reduction techniq ues were employed. CTDIvol: 53.2 mGy. DLP: 991 mGy-cm.. LIMITATIONS: None. FINDINGS: VENTRICLES: Age-appropriate size and contour. CEREBRUM: No hemorrhage. No midline shift. Stable appearance of the white matter. No evidence for ac lluvia infarction. CEREBELLUM: No hemorrhage. No evidence for acute infarction. EXTRA-AXIAL SPACES: No fluid collections. ORBITS AND GLOBE: No intra- or extraconal masses. Normal contour of globe without masses. CALVARIUM: No fracture. PARANASAL SINUSES: No fluid or mucosal thickening. SOFT TISSUES: No mass or hematoma. OTHER: No other significant finding. IMPRESSION: NO ACUTE INTRACRANIAL FINDINGS. EVIDENCE OF ACUTE STROKE: NO. TECHNICAL DOCUMENTATION: JOB ID: [id number] [place]-72 Quality ID # [id number]: Final reports with documentation of one or more dose reduction techniques (e.g., Au tomated exposure control, adjustment of the mA and/or kV according to patient size, use of iterative reconstruction technique) 2010 [employer]- All Rights Reserved Reading location - IP/workstation name: [employer]
[2019-09-15 16:12] LABS: APPEARANCE,URINE CLEAR; BILIRUBIN,URINE NEGATIVE (NEGATIVE); COLOR,URINE YELLOW; GLUCOSE, URINE >=500 mg/dL (NEGATIVE); KETONES,URINE NEGATIVE (NEGATIVE); LEUKOCYTE ESTERASE,URINE TRACE (NEGATIVE); NITRITE,URINE NEGATIVE (NEGATIVE); PROTEIN,URINE NEGATIVE (NEGATIVE); URINE SPECIFIC GRAVITY 1.021; UROBILINOGEN,URINE NEGATIVE mg/dL (<2.0)
--- NOTE | 2019-09-15 16:33 | ER Document Report ---
ED General - General Chief Complaint: Lip Swelling Stated Complaint: SWELLING Time Seen by Provider: 09/15/19 10:53 Primary Care Provider: OMEGA FERGUSON MD [Primary Care Provider] - Follow up as needed Mode of Arrival: Wheelchair Notes: 09/15/19 11:00 - ED Nursing Note by MARYSALEEM Ada Num: [id number] : 1935 Patient Age: 84 pt comes to ed from home via pov brought by spouse for c/o sudden onset lip swelling noted this am. denies known exposure. pt seen recently here and given macrobid and has a few doses left. pt unable to smile and states she just hasn't been feeling right. spouse states she has been "fair". pt reports hx of stroke, unable to perform smile and brow movement. pt on coumadin for afib. [facility] notes ED Medical Screen (RME) - General Chief Complaint: Facial Swelling Stated Complaint: SWELLING Time Seen by Provider: 09/15/19 10:53 Primary Care Provider: OMEGA FERGUSON MD [Primary Care Provider] - Follow up as needed Mode of Arrival: Wheelchair Information source: Patient Notes: HPI; 84-year-old female presents to the emergency room complaining of facial and neck swelling that started upon awakening this morning. Was seen here 5 days ago diagnosed with UTI. States is currently taking her Macrobid as prescribed. Is not taking her regular medications. Is unsure what medication she is taking. She denies any shortness of breath, no difficulty breathing. States her lip and neck feels swollen and numb. Denies any new foods no other new medications outside of the Macrobid. States she was fine when she went to bed last night. Spouse agrees that her symptoms started on awakening this morning. PE: Alert and oriented x3. Moderate distress noted. Able to fully smile. No other abnormalities noted on fast exam.: Clear to auscultation without rales, rhonchi, wheezes. Heart irregular rate and rhythm without murmurs, rubs, gallops. my notes 84-year-old black female arrives POV with her with chief complaint of several month history of upper and lower lip edema as well as itchy back and itchy groin. Patient gets her medications in a pillbox. She has not changed any of her medicines recently. Patient denies any other medicines over the last several months except for some Macrobid which was just recently written. Patient denies any chest pain shortness of breath skin lesions fever chills cough or cold diarrhea constipation cephalgia hemoptysis bloody stools TRAVEL OUTSIDE OF THE [place] IN LAST 30 DAYS: No - HPI Onset: Other - several months Onset/Duration: Persistent Quality of pain: Fullness Severity: Mild Pain Level: 1 Associated symptoms: Other - itchy skin of groin and back and swollen lips Exacerbated by: Denies Relieved by: Denies Similar symptoms previously: Yes Recently seen / treated by doctor: Yes - Related Data Allergies/Adverse Reactions: No Known Allergies Allergy (Verified 05/07/19 14:43) Home Medications: coumadin Past Medical History - General Information source: Patient, Relative - - Social History Smoking Status: Never Smoker Cigarette use (# per day): No Chew tobacco use (# tins/day): No Smoking Education Provided: No Frequency of alcohol use: None Drug Abuse: None Lives with: Family Family History: Reviewed & Not Pertinent Patient has suicidal ideation: No Patient has homicidal ideation: No - Past Medical History Cardiac Medical History: Reports: Hx Atrial Fibrillation, Hx Congestive Heart Failure, Hx Coronary Artery Disease, Hx DVT, Hx Heart Attack, Hx Hypercholesterolemia, Hx Hypertension, Hx Pulmonary Embolism, Hx Heart Murmur Pulmonary Medical History: Reports: Hx Pneumonia Denies: Hx Asthma Neurological Medical History: Denies: Hx Cerebrovascular Accident, Hx Seizures Endocrine Medical History: Reports: Hx Diabetes Mellitus Type 2 Renal/ Medical History: Denies: Hx Peritoneal Dialysis GI Medical History: Reports: Hx Gastroesophageal Reflux Disease, Hx Ulcer. Denies: Hx Hepatitis, Hx Hiatal Hernia Musculoskeletal Medical History: Reports Hx Arthritis - GERNERALIZED, Reports Hx Muscle Weakness - rt arm, Reports Hx Musculoskeletal Trauma Psychiatric Medical History: Reports: Hx Depression Infectious Medical History: Denies: Hx Hepatitis Past Surgical History: Reports: Hx Abdominal Surgery - Right hemicolectomy for tubular adenoma, Hx Cardiac Catheterization, Hx Coronary Stent, Hx Hysterectomy, Hx Oral Surgery, Hx Orthopedic Surgery - knee replacement, foot surgery, Hx Vascular Surgery - IVC filter. Denies: Hx Mastectomy, Hx Pacemaker - Immunizations Immunizations up to date: Yes Hx Diphtheria, Pertussis, Tetanus Vaccination: Yes Review of Systems - Review of Systems Constitutional: See HPI EENT: See HPI, Other - Mild lip edema Cardiovascular: No symptoms reported Respiratory: No symptoms reported Gastrointestinal: No symptoms reported Genitourinary: No symptoms reported Female Genitourinary: No symptoms reported Musculoskeletal: No symptoms reported Skin: See HPI, Rash Hematologic/Lymphatic: No symptoms reported Neurological/Psychological: No symptoms reported Physical Exam - Vital signs Vitals: Temp Pulse Resp BP Pulse Ox 97.7 F 67 18 116/34 L 100 09/15/19 10:14 09/15/19 10:14 09/15/19 10:14 09/15/19 10:14 09/15/19 10:14 Course - Vital Signs Vital signs: Temp Pulse Resp BP Pulse Ox 97.7 F 67 18 116/34 L 100 09/15/19 10:14 09/15/19 10:14 09/15/19 10:14 09/15/19 10:14 09/15/19 10:14 - Laboratory Result Diagrams: 09/15/19 11:30 09/15/19 11:30 Laboratory results interpreted by me: 09/15/19 09/15/19 09/15/19 11:30 11:30 15:30 Hgb 11.1 L Hct 33.2 L RDW 14.4 H Sodium 132.3 L Potassium 3.5 L Creatinine 1.36 H Est GFR ( Amer) 45 L Est GFR (MDRD) Non-Af 37 L Glucose 305 H Urine Glucose (UA) >=500 H Ur Leukocyte Esterase TRACE H Discharge - Discharge Clinical Impression: Pruritic dermatitis, Lip edema Disposition: HOME, SELF-CARE Admitting Provider: Porfirio Additional Instructions: Follow-up with your private Dr Ferguson and also wash skin with 1 teaspoon Hibiclens soap and 1 teaspoon of [place] Blue shampoo to your pruritic skin of your back chest and groin; after patting dry after bath please apply Lotrisone cream twice a day.. Return to ER for true emergencies. Take medicines as directed. Prescriptions: Chlorhexidine Gluconate [Antiseptic Skin Cleanser] 5 ml TP DAILY 10 Days #237 liquid Hydroxyzine HCl [Atarax 10 mg Tablet] 10 mg PO BID PRN #20 tablet PRN Reason: pruritic skin Clotrimazole/Betamethasone Dip [Lotrisone Cream 15 gm] 1 applic TP BID #1 tube Referrals: OMEGA FERGUSON MD [Primary Care Provider] - Follow up as needed
[2019-09-15] MEDS ORDERED: DEXAMETHASONE SOD PHOS INJ 10 MG/1 ML VIAL IM ONE (16:51)
[2019-09-15 17:21] VITALS: BP 114/74
--- NOTE | 2019-09-15 21:14 | EKG REPORT ---
SEVERITY:- ABNORMAL ECG - SINUS RHYTHM RIGHT BUNDLE BRANCH BLOCK : Confirmed by: Savage Eric MD 15-Sep-2019 21:14:03
== END 2019-09-15 17:21 | disposition home or self-care (01) ==
LOC: ER 10:03
DX: L30.8 Other specified dermatitis (principal); R60.9 Edema, unspecified; I48.91 Unspecified atrial fibrillation; I11.0 Hypertensive heart disease with heart failure; I50.9 Heart failure, unspecified; I25.10 Atherosclerotic heart disease of native coronary artery without angina pectoris; E78.00 Pure hypercholesterolemia, unspecified; E11.9 Type 2 diabetes mellitus without complications; I25.2 Old myocardial infarction
CPT/HCPCS: 93005; 99284; 96372; 36415; 85025; 85610; 80053; 81001; 84484; 70450; 93010; J1100

== ENCOUNTER 2019-09-23 22:09 | Emergency (ER) | payer MEDICARE, OTHER ==
--- NOTE | 2019-09-23 23:12 | ER Document Report ---
ED Medical Screen (RME) - General Chief Complaint: Swelling of Tongue Stated Complaint: TONGUE SWELLING Time Seen by Provider: 09/23/19 23:11 Primary Care Provider: OMEGA FERGUSON MD [Primary Care Provider] - Follow up as needed Mode of Arrival: Wheelchair Information source: Patient Notes: 84-year-old female presented to ED for swelling to the tongue. She is barely able to talk. She states she laid down just before dark to go to sleep for a nap because she was tired when she woke up her mouth did not feel right she had her look at her and her tongue is very swollen. She is having a lot of trouble talking at this time. She is able to talk but hard to understand what she is saying. She is alert oriented respirations regular nonlabored at this time. I have greeted and performed a rapid initial assessment of this patient. A comprehensive ED assessment and evaluation of the patient, analysis of test results and completion of medical decision making process will be conducted by an additional ED providers. TRAVEL OUTSIDE OF THE [place] IN LAST 30 DAYS: No - Related Data Allergies/Adverse Reactions: No Known Allergies Allergy (Verified 09/23/19 23:05) Past Medical History - Past Medical History Cardiac Medical History: Reports: Hx Atrial Fibrillation, Hx Congestive Heart Failure, Hx Coronary Artery Disease, Hx DVT, Hx Heart Attack, Hx Hypercholesterolemia, Hx Hypertension, Hx Pulmonary Embolism, Hx Heart Murmur Pulmonary Medical History: Reports: Hx Pneumonia Denies: Hx Asthma Neurological Medical History: Denies: Hx Cerebrovascular Accident, Hx Seizures Endocrine Medical History: Reports: Hx Diabetes Mellitus Type 2 Renal/ Medical History: Denies: Hx Peritoneal Dialysis GI Medical History: Reports: Hx Gastroesophageal Reflux Disease, Hx Ulcer. Denies: Hx Hepatitis, Hx Hiatal Hernia Musculoskeltal Medical History: Reports Hx Arthritis - GERNERALIZED, Reports Hx Muscle Weakness - rt arm, Reports Hx Musculoskeletal Trauma Psychiatric Medical History: Reports: Hx Depression Infectious Medical History: Denies: Hx Hepatitis Past Surgical History: Reports: Hx Abdominal Surgery - Right hemicolectomy for tubular adenoma, Hx Cardiac Catheterization, Hx Coronary Stent, Hx Hysterectomy, Hx Oral Surgery, Hx Orthopedic Surgery - knee replacement, foot surgery, Hx Vascular Surgery - IVC filter. Denies: Hx Mastectomy, Hx Pacemaker - Immunizations Immunizations up to date: Yes Hx Diphtheria, Pertussis, Tetanus Vaccination: Yes Physical Exam - Vital signs Vitals: Temp Pulse Resp BP Pulse Ox 98.3 F 68 16 132/56 H 100 09/23/19 22:16 09/23/19 22:16 09/23/19 22:16 09/23/19 22:16 09/23/19 22:16 Course - Vital Signs Vital signs: Temp Pulse Resp BP Pulse Ox 98.3 F 68 16 132/56 H 100 09/23/19 22:16 09/23/19 22:16 09/23/19 22:16 09/23/19 22:16 09/23/19 22:16 Doctor's Discharge - Discharge Referrals: OMEGA FERGUSON MD [Primary Care Provider] - Follow up as needed
[2019-09-23] MEDS ORDERED: EPINEPHRINE INJ/PF 1 MG/1 ML AMPULE IM ONE (23:56)
[2019-09-23] MEDS ORDERED: METHYLPREDNISOLONE INJ 125 MG/2 ML SDV IV ONE (23:57)
[2019-09-23] MEDS ORDERED: FAMOTIDINE INJ/PF 20 MG/2 ML SDV IV ONE (23:58)
[2019-09-23] MEDS ORDERED: DIPHENHYDRAMINE HCL 50 MG/ML VIAL IV ONE (23:58)
--- NOTE | 2019-09-24 00:06 | ER Document Report ---
ED General - General Chief Complaint: Swelling of Tongue Stated Complaint: TONGUE SWELLING Time Seen by Provider: 09/23/19 23:11 Primary Care Provider: OMEGA FERGUSON MD [Primary Care Provider] - Follow up as needed Mode of Arrival: Wheelchair TRAVEL OUTSIDE OF THE [place] IN LAST 30 DAYS: No - HPI Notes: Chief complaint: Swelling of tongue HPI: 84-year-old female patient followed by Dr. Ferguson who was seen in this emergency department [address] gay with an episode of mild angioedema involving the lips which he thought was probably related to Macrobid which she been given for urinary tract infection. He treated her with an inject ion of Decadron and sent her home with oral antihistamine advised her not taking oral Macrobid. Patient symptoms apparently resolved completely and she was doing well until today when she lay down to take a nap in the afternoon when she awakened in the early evening she noted that she had developed some swelling of the tip of her tongue. She is not having any trouble handling her secretions at this point but notices it mostly with speaking. I went back through her medications and I note that she is taking a combination antihypertensive containing amlodipine and valsartan. - Related Data Allergies/Adverse Reactions: No Known Allergies Allergy (Verified 09/23/19 23:05) Past Medical History - General Information source: Patient, Relative - Social History Smoking Status: Never Smoker Frequency of alcohol use: None Drug Abuse: None Lives with: Spouse/Significant other Family History: Reviewed & Not Pertinent - Past Medical History Cardiac Medical History: Reports: Hx Atrial Fibrillation, Hx Congestive Heart Failure, Hx Coronary Artery Disease, Hx DVT, Hx Heart Attack, Hx Hypercholesterolemia, Hx Hypertension, Hx Pulmonary Embolism, Hx Heart Murmur Pulmonary Medical History: Reports: Hx Pneumonia Denies: Hx Asthma Neurological Medical History: Denies: Hx Cerebrovascular Accident, Hx Seizures Endocrine Medical History: Reports: Hx Diabetes Mellitus Type 2 Renal/ Medical History: Denies: Hx Peritoneal Dialysis GI Medical History: Reports: Hx Gastroesophageal Reflux Disease, Hx Ulcer. Denies: Hx Hepatitis, Hx Hiatal Hernia Musculoskeletal Medical History: Reports Hx Arthritis - GERNERALIZED, Reports Hx Muscle Weakness - rt arm, Reports Hx Musculoskeletal Trauma Psychiatric Medical History: Reports: Hx Depression Infectious Medical History: Denies: Hx Hepatitis Past Surgical History: Reports: Hx Abdominal Surgery - Right hemicolectomy for tubular adenoma, Hx Cardiac Catheterization, Hx Coronary Stent, Hx Hysterectomy, Hx Oral Surgery, Hx Orthopedic Surgery - knee replacement, foot surgery, Hx Vascular Surgery - IVC filter. Denies: Hx Mastectomy, Hx Pacemaker - Immunizations Immunizations up to date: Yes Hx Diphtheria, Pertussis, Tetanus Vaccination: Yes Review of Systems - Review of Systems Notes: Constitutional: Negative for fever. HENT: As per HPI. Eyes: Negative for visual changes. Cardiovascular: Negative for chest pain. Respiratory: Negative for shortness of breath. Gastrointestinal: Negative for abdominal pain, vomiting or diarrhea. Genitourinary: Negative for dysuria. Musculoskeletal: Negative for back pain. Skin: Negative for rash. Neurological: Negative for headaches, weakness or numbness. 10 point ROS negative except as marked above and in HPI. Physical Exam - Vital signs Vitals: Temp Pulse Resp BP Pulse Ox 98.3 F 68 16 132/56 H 100 09/23/19 22:16 09/23/19 22:16 09/23/19 22:16 09/23/19 22:16 09/23/19 22:16 - Notes Notes: GENERAL: Obese elderly female appearing in no acute distress. SKIN: Good turgor no rashes. HEAD: Normocephalic atraumatic. EYES: PERRLA. EOMI. Conjunctivae and sclerae clear. EARS: CANALS AND TMS CLEAR. NOSE: CLEAR. MOUTH: Mild edema of the tongue. Moist mucosa. Good dentition. No stridor or edema. No drooling. Throat: No edema of the uvula. NECK: Supple. No masses or thyromegaly. No adenopathy. Carotids 2+ without bruits. No JVD. BACK: Symmetrical without tenderness. CHEST: Respirations unlabored. Breath sounds clear and symmetrical. HEART: Regular rhythm. No murmur gallop or rub. ABDOMEN: Obese. Soft nontender without masses, organomegaly or rebound. Bowel sounds normally active. No bruits. GENITALIA: Deferred. EXTREMITIES: Trace bilateral pretibial edema. No calf tenderness. Cap refill less than 1.5 seconds. Dorsalis pedis and posterior tibial pulses 3+ and symmetrical. NEUROLOGICAL: GCS 15. Alert and oriented x3. Fluent speech. Cranial nerves II through XII intact. Sensorimotor and cerebellar normal. Normal tone. PSYCHIATRIC: Appropriate affect. Course - Re-evaluation Re-evalutation: 09/24/19 02:25 Patient received IV Solu-Medrol and also was given IM epinephrine and IV Benadryl as well as IV famotidine. She was observed in the emergency department for approximately 4 hours. During this time her edema subsided and she appeared very stable and comfortable and requested discharge home which I felt would be appropriate. I think it is probable that the VALSARTAN she has been on for her blood pressure is the offending agent. I have asked her not to take anymore this. She will contact Dr. Ferguson tomorrow morning and arrange office follow- up within the next 48 hours. She can return here as needed for any new or worsening symptoms. I have recommended to her that she not take ELE inhibitors or angiotensin receptor blockers in the future. Findings, clinical impression and plan of treatment have been discussed with patient/family. Understanding of current findings and recommendations has been acknowledged by them and there is agreement regarding disposition and follow-up. 09/24/19 02:29 - Vital Signs Vital signs: Temp Pulse Resp BP Pulse Ox 98.3 F 68 17 131/55 H 100 09/23/19 22:16 09/23/19 22:16 09/24/19 01:21 09/24/19 01:21 09/24/19 01:21 - Laboratory Result Diagrams: 09/24/19 00:05 09/24/19 00:05 Laboratory results interpreted by me: 09/24/19 09/24/19 00:05 00:05 PT 16.5 H Sodium 129.2 L Chloride 92 L Creatinine 1.36 H Est GFR ( Amer) 45 L Est GFR (MDRD) Non-Af 37 L Glucose 340 H Alkaline Phosphatase 152 H Discharge - Discharge Clinical Impression: Angioedema Qualifiers: Encounter type: initial encounter Qualified Code(s): T78.3XXA - Angioneurotic edema, initial encounter Condition: Stable Disposition: HOME, SELF-CARE Additional Instructions: Stop taking amlodipine/valsartan for your blood pressure. Do not take this type of medication again in the future. Take prescribed medications as instructed. Return here as needed for new or worsening symptoms. Follow-up with your physician this week. Prescriptions: Prednisone [Deltasone 20 mg Tablet] 2 tab PO DAILY 5 Days tablet Famotidine [Pepcid 20 mg Tablet] 20 mg PO DAILY #12 tablet Referrals: OMEGA FERGUSON MD [Primary Care Provider] - Follow up as needed
[2019-09-24 00:37] LABS: ABSOLUTE EOSINOPHILS # (AUTO) 0.2 10^3/uL (0.0-0.6); ABSOLUTE LYMPHOCYTES (AUTO) 1.5 10^3/uL (0.5-4.7); ABSOLUTE MONOCYTES (AUTO) 0.6 10^3/uL (0.1-1.4); BASOPHILS % (AUTO) 0.5 % (0-2); HEMATOCRIT 36.3 % (36.0-47.0); HEMOGLOBIN 12.2 g/dL (12.0-15.5); LYMPHOCYTES % (AUTO) 27.9 % (13-45); MEAN CORPUSCULAR HEMOGLOBIN 29.4 pg (27.0-33.4); MEAN CORPUSCULAR HGB CONC 33.5 g/dL (32.0-36.0); MEAN CORPUSCULAR VOLUME 88 fl (80-97); MONOCYTES % (AUTO) 11.7 % (3-13); PLATELET COUNT 299 10^3/uL (150-450); RED BLOOD COUNT 4.13 10^6/uL (3.72-5.28); SEGMENTED NEUTROPHILS % (AUTO) 56.9 % (42-78); TOTAL CELLS COUNTED % (AUTO) 100 %; WHITE BLOOD COUNT 5.2 10^3/uL (4.0-10.5)
[2019-09-24 00:44] LABS: INTERNATIONAL RATION (INR) 1.33; PROTHROMBIN TIME 16.5 SEC (11.4-15.4)
[2019-09-24 00:57] LABS: ALBUMIN 3.9 g/dL (3.5-5.0); ALKALINE PHOSPHATASE 152 U/L (38-126); ANION GAP 9 (5-19); ASPARTATE AMINO TRANSFERASE 22 U/L (14-36); BILIRUBIN,DIRECT 0.2 mg/dL (0.0-0.4); BILIRUBIN,TOTAL 0.3 mg/dL (0.2-1.3); BLOOD UREA NITROGEN 12 mg/dL (7-20); CALCIUM 9.9 mg/dL (8.4-10.2); CARBON DIOXIDE 28 mmol/L (22-30); CHLORIDE 92 mmol/L (98-107); GLUCOSE 340 mg/dL (75-110); POTASSIUM 3.7 mmol/L (3.6-5.0); TOTAL PROTEIN 7.7 g/dL (6.3-8.2)
[2019-09-24 04:01] VITALS: BP 118/57
== END 2019-09-24 04:11 | disposition home or self-care (01) ==
LOC: ER 22:09
DX: T78.3XXA Angioneurotic edema, initial encounter (principal); R22.9 Localized swelling, mass and lump, unspecified; I48.91 Unspecified atrial fibrillation; I50.9 Heart failure, unspecified; I11.0 Hypertensive heart disease with heart failure; E11.9 Type 2 diabetes mellitus without complications; E66.9 Obesity, unspecified
CPT/HCPCS: 99283; 96372; 96374; 96375; 36415; 85025; 85610; 85730; 80053; J1200; J0171; J2930; S0028

== ENCOUNTER 2019-12-04 21:01 | Emergency (ER) | payer MEDICARE, OTHER ==
--- NOTE | 2019-12-04 22:32 | ER Document Report ---
ED Medical Screen (RME) - General Chief Complaint: Syncope Stated Complaint: GENERAL ILLNESS Time Seen by Provider: 12/04/19 22:27 Primary Care Provider: OMEGA FERGUSON MD [Primary Care Provider] - Follow up as needed Mode of Arrival: Medic Information source: Patient Notes: Patient states she was walking across her room when she felt kind of dizzy and did not feel good and after she sat down in a chair she passed out. She states her called 911 and brought sent her to the emergency room. She states she started feeling a little bit better afterwards but said she needed to come on to get checked out. Patient is alert and obviously early dementia. She does not have any family with her. She states she has been to this hospital multiple times. She states she does have blood pressure and cholesterol and diabetes. I have greeted and performed a rapid initial assessment of this patient. A comprehensive ED assessment and evaluation of the patient, analysis of test results and completion of medical decision making process will be conducted by an additional ED providers. TRAVEL OUTSIDE OF THE [place] IN LAST 30 DAYS: No - Related Data Allergies/Adverse Reactions: No Known Allergies Allergy (Verified 09/23/19 23:05) Past Medical History - Past Medical History Cardiac Medical History: Reports: Hx Atrial Fibrillation, Hx Congestive Heart Failure, Hx Coronary Artery Disease, Hx DVT, Hx Heart Attack, Hx Hypercholesterolemia, Hx Hypertension, Hx Pulmonary Embolism, Hx Heart Murmur Pulmonary Medical History: Reports: Hx Pneumonia Denies: Hx Asthma Neurological Medical History: Denies: Hx Cerebrovascular Accident, Hx Seizures Endocrine Medical History: Reports: Hx Diabetes Mellitus Type 2 Renal/ Medical History: Denies: Hx Peritoneal Dialysis GI Medical History: Reports: Hx Gastroesophageal Reflux Disease, Hx Ulcer. Denies: Hx Hepatitis, Hx Hiatal Hernia Musculoskeltal Medical History: Reports Hx Arthritis - GERNERALIZED, Reports Hx Muscle Weakness - rt arm, Reports Hx Musculoskeletal Trauma Psychiatric Medical History: Reports: Hx Depression Infectious Medical History: Denies: Hx Hepatitis Past Surgical History: Reports: Hx Abdominal Surgery - Right hemicolectomy for tubular adenoma, Hx Cardiac Catheterization, Hx Coronary Stent, Hx Hysterectomy, Hx Oral Surgery, Hx Orthopedic Surgery - knee replacement, foot surgery, Hx Vascular Surgery - IVC filter. Denies: Hx Mastectomy, Hx Pacemaker - Immunizations Immunizations up to date: Yes Hx Diphtheria, Pertussis, Tetanus Vaccination: Yes Physical Exam - Vital signs Vitals: Temp Pulse Resp BP Pulse Ox 98.1 F 66 18 104/52 L 100 12/04/19 21:57 12/04/19 21:57 12/04/19 21:57 12/04/19 21:57 12/04/19 21:57 Course - Vital Signs Vital signs: Temp Pulse Resp BP Pulse Ox 98.1 F 66 18 104/52 L 100 12/04/19 21:57 12/04/19 21:57 12/04/19 21:57 12/04/19 21:57 12/04/19 21:57 Doctor's Discharge - Discharge Referrals: OMEGA FERGUSON MD [Primary Care Provider] - Follow up as needed
[2019-12-05 05:44] LABS: ABSOLUTE EOSINOPHILS # (AUTO) 0.2 10^3/uL (0.0-0.6); ABSOLUTE LYMPHOCYTES (AUTO) 1.3 10^3/uL (0.5-4.7); ABSOLUTE MONOCYTES (AUTO) 0.5 10^3/uL (0.1-1.4); ABSOLUTE NEUT (AUTO) 3.2 10^3/uL (1.7-8.2); BASOPHILS % (AUTO) 0.8 % (0-2); EOSINOPHILS % (AUTO) 2.9 % (0-6); HEMATOCRIT 33.6 % (36.0-47.0); HEMOGLOBIN 11.3 g/dL (12.0-15.5); LYMPHOCYTES % (AUTO) 24.9 % (13-45); MEAN CORPUSCULAR HEMOGLOBIN 29.9 pg (27.0-33.4); MEAN CORPUSCULAR HGB CONC 33.8 g/dL (32.0-36.0); MEAN CORPUSCULAR VOLUME 89 fl (80-97); PLATELET COUNT 285 10^3/uL (150-450); RED BLOOD COUNT 3.79 10^6/uL (3.72-5.28); RED CELL DISTRIBUTION WIDTH 14.5 % (11.5-14.0); SEGMENTED NEUTROPHILS % (AUTO) 62.4 % (42-78); TOTAL CELLS COUNTED % (AUTO) 100 %; WHITE BLOOD COUNT 5.2 10^3/uL (4.0-10.5)
[2019-12-05 06:07] LABS: ALBUMIN 3.7 g/dL (3.5-5.0); ALKALINE PHOSPHATASE 115 U/L (38-126); ANION GAP 10 (5-19); ASPARTATE AMINO TRANSFERASE 22 U/L (14-36); BILIRUBIN,DIRECT 0.3 mg/dL (0.0-0.4); BILIRUBIN,TOTAL 0.7 mg/dL (0.2-1.3); BLOOD UREA NITROGEN 14 mg/dL (7-20); CALCIUM 10.1 mg/dL (8.4-10.2); CARBON DIOXIDE 30 mmol/L (22-30); CHLORIDE 92 mmol/L (98-107); CREATINE KINASE 89 U/L (30-135); GLUCOSE 345 mg/dL (75-110); POTASSIUM 3.9 mmol/L (3.6-5.0); TOTAL PROTEIN 7.3 g/dL (6.3-8.2)
[2019-12-05 06:15] LABS: CREATINE KINASE MB 1.16 ng/mL (<4.55)
[2019-12-05 06:22] LABS: APPEARANCE,URINE SLIGHTLY-CLOUDY; BILIRUBIN,URINE NEGATIVE (NEGATIVE); COLOR,URINE YELLOW; GLUCOSE, URINE >=500 mg/dL (NEGATIVE); KETONES,URINE NEGATIVE (NEGATIVE); LEUKOCYTE ESTERASE,URINE NEGATIVE (NEGATIVE); NITRITE,URINE NEGATIVE (NEGATIVE); PROTEIN,URINE NEGATIVE (NEGATIVE); UROBILINOGEN,URINE NEGATIVE mg/dL (<2.0)
[2019-12-05 06:25] LABS: TROPONIN I < 0.012 ng/mL
[2019-12-05] MEDS ORDERED: NORMAL SALINE 1000 ML 1,000 ML IV ONE (08:53)
--- NOTE | 2019-12-05 08:56 | ER Document Report ---
ED Syncope and Near Syncope - General Chief Complaint: Syncope Stated Complaint: GENERAL ILLNESS Time Seen by Provider: 12/04/19 22:27 Primary Care Provider: OMEGA FERGUSON MD [Primary Care Provider] - Follow up as needed Mode of Arrival: Medic Notes: Patient is a 84-year-old female with a history of hypertension and diabetes who presents emergency department with a chief complaint of syncope. Patient reports last night she was ambulating out of the kitchen with a plate of food in her hands. Patient reports she does have generalized weakness and chronic numbness to both feet. She does normally use a cane or a walker. She states that she became very weak and felt like she was going to pass out. was at her side and did help her sit down. He states that she did not pass out but did start to cough. Patient reports she felt like she was going to as she felt very dizzy. Patient states she at that time she did not have chest pain, shortness of breath or palpitations. Patient reports that she does not feel slightly hungry but has not had much of an appetite. Denies recent travel or exposure to sick contacts. TRAVEL OUTSIDE OF THE [place] IN LAST 30 DAYS: No - Related Data Allergies/Adverse Reactions: No Known Allergies Allergy (Verified 09/23/19 23:05) Past Medical History - General Information source: Patient - Social History Smoking Status: Never Smoker Frequency of alcohol use: None Drug Abuse: None Lives with: Spouse/Significant other Family History: Reviewed & Not Pertinent - Past Medical History Cardiac Medical History: Reports: Hx Atrial Fibrillation, Hx Congestive Heart Failure, Hx Coronary Artery Disease, Hx DVT, Hx Heart Attack, Hx Hypercholesterolemia, Hx Hypertension, Hx Pulmonary Embolism, Hx Heart Murmur Pulmonary Medical History: Reports: Hx Pneumonia Denies: Hx Asthma EENT Medical History: Reports: None Neurological Medical History: Reports: None. Denies: Hx Cerebrovascular Accident, Hx Seizures Endocrine Medical History: Reports: Hx Diabetes Mellitus Type 2 Renal/ Medical History: Reports: None. Denies: Hx Peritoneal Dialysis Malignancy Medical History: Reports: None GI Medical History: Reports: Hx Gastroesophageal Reflux Disease, Hx Ulcer. Denies: Hx Hepatitis, Hx Hiatal Hernia Musculoskeletal Medical History: Reports Hx Arthritis - GERNERALIZED, Reports Hx Muscle Weakness - rt arm, Reports Hx Musculoskeletal Trauma Skin Medical History: Reports None Psychiatric Medical History: Reports: Hx Depression Traumatic Medical History: Reports: None Infectious Medical History: Reports: None. Denies: Hx Hepatitis Past Surgical History: Reports: Hx Abdominal Surgery - Right hemicolectomy for tubular adenoma, Hx Cardiac Catheterization, Hx Coronary Stent, Hx Hysterectomy, Hx Oral Surgery, Hx Orthopedic Surgery - knee replacement, foot surgery, Hx Vascular Surgery - IVC filter. Denies: Hx Mastectomy, Hx Pacemaker - Immunizations Immunizations up to date: Yes Hx Diphtheria, Pertussis, Tetanus Vaccination: Yes Review of Systems - Review of Systems Constitutional: No symptoms reported EENT: No symptoms reported Cardiovascular: Syncope Respiratory: See HPI Gastrointestinal: See HPI Genitourinary: No symptoms reported Female Genitourinary: No symptoms reported Musculoskeletal: No symptoms reported Skin: No symptoms reported Hematologic/Lymphatic: No symptoms reported Neurological/Psychological: No symptoms reported Physical Exam - Vital signs Vitals: Temp Pulse Resp BP Pulse Ox 98.1 F 66 18 104/52 L 100 12/04/19 21:57 12/04/19 21:57 12/04/19 21:57 12/04/19 21:57 12/04/19 21:57 Interpretation: Normal - Notes Notes: GENERAL: Well-appearing, well-nourished and in no acute distress. HEAD: Atraumatic, normocephalic. EYES: Pupils equal round and reactive to light, extraocular movements intact, sclera anicteric, conjunctiva are normal. ENT: Nares patent, oropharynx clear without exudates. Moist mucous membranes. NECK: Normal range of motion, supple without lymphadenopathy or JVD. LUNGS: Breath sounds clear to auscultation bilaterally and equal. No wheezes rales or rhonchi. HEART: Regular rate and rhythm without murmurs, rubs or gallops. ABDOMEN: Soft, nontender, normoactive bowel sounds. No guarding, no rebound. No masses appreciated. BACK: No cervical, thoracic, lumbar midline tenderness. No saddle anesthesia, n ormal distal neurovascular exam. GENITOURINARY: Deferred. EXTREMITIES: Normal range of motion, no pitting or edema. No clubbing or cyanosis. NEUROLOGICAL: Cranial nerves II through XII grossly intact. Normal speech, normal gait. PSYCH: Normal mood, normal affect. SKIN: Warm, Dry, normal turgor, no rashes or lesions noted. Course - Re-evaluation Re-evalutation: 12/05/19 08:56 We will give the patient a liter of IV fluids, obtain CT of the head as well as a chest x-ray. Patient sitting upright in stretcher with no acute distress. Orthostatics were negative. 12/05/19 10:[address] Ferguson in regards to the patient complaints, labs, and radiology studies. Patient states feeling much better, will continue IVF's, and recheck blood sugar. I did discuss the EKG with Dr. Pride, no acute change. Patient remains asymptomatic at this time. Daughter does agree would like to see the patient on Sunday. I did make her appointment at 10:45 AM notified at her as well as her . Patient to return if symptoms change or worsen. - Vital Signs Vital signs: Temp Pulse Resp BP Pulse Ox 97.9 F 61 18 146/66 H 100 12/05/19 04:21 12/05/19 08:48 12/04/19 21:57 12/05/19 08:48 12/05/19 04:21 - Laboratory Result Diagrams: 12/05/19 04:40 12/05/19 04:40 Laboratory results interpreted by me: 12/05/19 12/05/19 12/05/19 04:40 04:40 05:50 Hgb 11.3 L Hct 33.6 L RDW 14.5 H Sodium 131.8 L Chloride 92 L Est GFR ( Amer) 51 L Est GFR (MDRD) Non-Af 42 L Glucose 345 H Urine Glucose (UA) >=500 H 12/05/19 09:55 Blood was not show any significant leukocytosis, anemia or electrolyte derangement. Patient's corrected sodium 136 when considering a glucose of 345. Patient's troponin is negative. Patient's urinalysis unremarkable. Laboratory 12/05/19 12/05/19 12/05/19 04:40 04:40 04:40 WBC 5.2 RBC 3.79 Hgb 11.3 L Hct 33.6 L MCV 89 MCH 29.9 MCHC 33.8 RDW 14.5 H Plt Count 285 Lymph % (Auto) 24.9 [place] % (Auto) 9.0 Eos % (Auto) 2.9 Baso % (Auto) 0.8 Absolute Neuts (auto) 3.2 Absolute Lymphs (auto) 1.3 Absolute Monos (auto) 0.5 Absolute Eos (auto) 0.2 Absolute Basos (auto) 0.0 Seg Neutrophils % 62.4 Sodium 131.8 L Potassium 3.9 Chloride 92 L Carbon Dioxide 30 Anion Gap 10 BUN 14 Creatinine 1.22 Est GFR ( Amer) 51 L Est GFR (MDRD) Non-Af 42 L Glucose 345 H Calcium 10.1 Total Bilirubin 0.7 Direct Bilirubin 0.3 Neonat Total Bilirubin Not Reportable Neonat Direct Bilirubin Not Reportable Neonat Indirect Bili Not Reportable AST 22 ALT 12 Alkaline Phosphatase 115 Creatine Kinase 89 CK-MB (CK-2) 1.16 Troponin I < 0.012 Total Protein 7.3 Albumin 3.7 Urine Color Urine Appearance Urine pH Ur Specific [place] Urine Protein Urine Glucose (UA) Urine Ketones Urine Blood Urine Nitrite Urine Bilirubin Urine Urobilinogen Ur Leukocyte Esterase Urine WBC (Auto) Urine RBC (Auto) Squamous Epi Cells Auto Urine Mucus (Auto) Urine Ascorbic Acid 12/05/19 05:50 WBC RBC Hgb Hct MCV MCH MCHC RDW Plt Count Lymph % (Auto) [place] % (Auto) Eos % (Auto) Baso % (Auto) Absolute Neuts (auto) Absolute Lymphs (auto) Absolute Monos (auto) Absolute Eos (auto) Absolute Basos (auto) Seg Neutrophils % Sodium Potassium Chloride Carbon Dioxide Anion Gap BUN Creatinine Est GFR ( Amer) Est GFR (MDRD) Non-Af Glucose Calcium Total Bilirubin Direct Bilirubin Neonat Total Bilirubin Neonat Direct Bilirubin Neonat Indirect Bili AST ALT Alkaline Phosphatase Creatine Kinase CK-MB (CK-2) Troponin I Total Protein Albumin Urine Color YELLOW Urine Appearance SLIGHTLY-CLOUDY Urine pH 5.0 Ur Specific [place] 1.030 Urine Protein NEGATIVE Urine Glucose (UA) >=500 H Urine Ketones NEGATIVE Urine Blood NEGATIVE Urine Nitrite NEGATIVE Urine Bilirubin NEGATIVE Urine Urobilinogen NEGATIVE Ur Leukocyte Esterase NEGATIVE Urine WBC (Auto) 1 Urine RBC (Auto) 1 Squamous Epi Cells Auto 10 Urine Mucus (Auto) RARE Urine Ascorbic Acid NEGATIVE - Diagnostic Test Radiology reviewed: Reports reviewed Radiology results interpreted by me: 12/05/19 09:55 Chest X-Ray 12/05/19 08:40 IMPRESSION: NO ACUTE RADIOGRAPHIC FINDING IN THE CHEST. Head CT 12/05/19 08:52 IMPRESSION: No acute findings EVIDENCE OF ACUTE STROKE: NO. - EKG Interpretation by Me Additional EKG results interpreted by me: 12/05/19 10:13 EKG shows a sinus rhythm with heart rate of 60. Patient's CA interval is 176, QT is 468 and QTc is 468. Patient has a left [place] deviation. Patient does h ave a right bundle branch block which was present on previous EKG that was done on September 15, 2019. Discharge - Discharge Clinical Impression: Elevated blood sugar Syncope Qualifiers: Syncope type: unspecified Qualified Code(s): R55 - Syncope and collapse Condition: Stable Disposition: HOME, SELF-CARE Additional Instructions: *Today are seen in the emergency department for syncope. Syncope is near fainting. After your visit in the emergency department your symptoms have improved. You state feeling are normal. Your sugar was elevated at 345. We have given you IV fluids. Please continue taking your prescribed medications. I did speak with Dr. Ferguson who would like to see you at 1045 on Sunday. If you develop any new or worsening symptoms over the weekend such as chest pain, heart palpitations, mental confusion, blurred vision or headache please return to the emergency department immediately. Syncopal Episode Syncope (fainting or near-fainting) can occur from many different health problems. Or it can be a simple fainting spell requiring no treatment. It is safe for you to go home, but further evaluation will likely be necessary. Your work-up may include tests for internal bleeding, heart disease, medication problems, or near-strokes. Tests are not always required, however, depending on the nature of your problem. The warning signs of an impending faint include: dizziness, lightheadedness, nausea, hot flashes, tingling, and weakness. If this happens, lay down and put your feet up, then wait until all of these symptoms have passed before standing up again. If these episodes become recurrent, or if you develop chest pain, heart palpitations, mental confusion, blurred vision, or headache, then you should c all the physician, or go to the emergency room. Diabetes You have an abnormally high blood sugar, suspicious for diabetes. Not all high blood sugar requires long-term treatment. High blood sugar can be due to medications, , or the stress of illness. (These cases are "borderline diabetes.") If the doctor feels your high blood sugar might get better with time, you may not require treatment now. You will be scheduled for further evaluation. It's very important that you follow through. Uncontrolled high blood sugar leads to early heart disease, strokes, nerve damage, eye damage, and kidney damage. All diabetics should follow a diet designed to control the blood sugar. Overweight diabetics should exercise regularly and lose weight. If this is not sufficient to control the blood sugar, pills or insulin shots are necessary. Younger people who develop diabetes almost always require insulin daily. Home testing of blood sugars or urine sugar is required. Diabetic teaching is available to help you figure insulin doses and monitor the blood sugar. Call the physician if there is faintness, excess sleepiness, or very rapid breathing. If hypoglycemia (LOW blood sugar) develops, symptoms are shakiness, weakness, sweating, and confusion. In this case, you should eat or drink something with sugar at once. Referrals: OMEGA FERGUSON MD [Primary Care Provider] - 12/08/19 10:45 am
--- NOTE | 2019-12-05 09:24 | RADIOLOGY REPORT (SQ) ---
EXAM DESCRIPTION: CT HEAD WITHOUT IMAGES COMPLETED DATE/TIME: 12/05/2019 9:13 am REASON FOR STUDY: Syncope COMPARISON: CT brain 09/15/2019 MRI brain 03/12/2019 TECHNIQUE: Axial images acquired through the brain without intravenous contrast. Images reviewed wi th bone, brain and subdural windows. Additional sagittal and coronal reconstructions were generated. Images stored on PACS. All CT scanners at this facility use dose modulation, iterative reconstruction, and/or weight based d osing when appropriate to reduce radiation dose to as low as reasonably achievable (ALARA). [facility]: Dose Right [facility]: CareDose [facility]: Dose Right [facility]: Teradose 4D [facility]: Vocalcom RADIATION DOSE: CT Rad equipment meets quality standard of care and radiation dose reduction techniq ues were employed. CTDIvol: 53.2 mGy. DLP: 1150 mGy-cm. mGy. LIMITATIONS: None. FINDINGS: VENTRICLES: Normal size and contour. CEREBRUM: No masses. No hemorrhage. No midline shift. No evidence for acute infarction. Normal gra y/white matter differentiation. No areas of low density in the white matter. CEREBELLUM: No masses. No hemorrhage. No alteration of density. No evidence for acute infarction. EXTRAAXIAL SPACES: No fluid collections. Benign hyperostosis frontalis interna, benign hyperostosis along the anterior falx. ORBITS AND GLOBE: No intra- or extraconal masses. Normal contour of globe without masses. CALVARIUM: No fracture. PARANASAL SINUSES: No fluid or mucosal thickening. SOFT TISSUES: No mass or hematoma. OTHER: No other significant finding. IMPRESSION: No acute findings EVIDENCE OF ACUTE STROKE: NO. COMMENT: Quality ID # [id number]: Final reports with documentation of one or more dose reduction techniques (e.g., Automated exposure control, adjustment of the mA and/or kV according to patient size, use of iterative reconstruction technique) TECHNICAL DOCUMENTATION: JOB ID: [id number] 2010 [employer]- All Rights Reserved Reading location - IP/workstation name: [email or web address]
--- NOTE | 2019-12-05 09:25 | RADIOLOGY REPORT (SQ) ---
EXAM DESCRIPTION: CHEST 2 VIEWS IMAGES COMPLETED DATE/TIME: 12/05/2019 9:02 am REASON FOR STUDY: Syncope COMPARISON: Chest films 06/15/2018, 12/14/2013 EXAM PARAMETERS: NUMBER OF VIEWS: two views TECHNIQUE: Digital Frontal and Lateral radiographic views of the chest acquired. RADIATION DOSE: NA LIMITATIONS: none FINDINGS: LUNGS AND PLEURA: No opacities, masses or pneumothorax. No pleural effusion. MEDIASTINUM AND HILAR STRUCTURES: No masses or contour abnormalities. HEART AND VASCULAR STRUCTURES: Heart normal size. No evidence for failure. BONES: No acute findings. HARDWARE: None in the chest. OTHER: No other significant finding. IMPRESSION: NO ACUTE RADIOGRAPHIC FINDING IN THE CHEST. TECHNICAL DOCUMENTATION: JOB ID: [id number] 2010 [employer]- All Rights Reserved Reading location - IP/workstation name: [email or web address]
[2019-12-05 11:59] VITALS: BP 149/81
--- NOTE | 2019-12-06 10:09 | EKG REPORT ---
SEVERITY:- ABNORMAL ECG - SINUS RHYTHM PROBABLE LEFT ATRIAL ABNORMALITY RBBB AND LAFB : Confirmed by: Coby Hawkins MD 06-Dec-2019 10:08:53
== END 2019-12-05 12:03 | disposition home or self-care (01) ==
LOC: ER 21:01
DX: R55 Syncope and collapse (principal); E11.9 Type 2 diabetes mellitus without complications; R20.0 Anesthesia of skin; R53.1 Weakness; I11.0 Hypertensive heart disease with heart failure; I50.9 Heart failure, unspecified; I48.91 Unspecified atrial fibrillation; E78.00 Pure hypercholesterolemia, unspecified; I25.2 Old myocardial infarction
CPT/HCPCS: 93005; 99285; 96360; 96361; 36415; 82553; 82962; 82550; 85025; 80053; 81001; 84484; 71046; 70450; 93010; J7030

== ENCOUNTER 2019-12-07 09:24 | Emergency (ER) | payer MEDICARE, OTHER ==
[2019-12-07] MEDS ORDERED: METHYLPREDNISOLONE INJ 125 MG/2 ML SDV IV ONE (10:24)
[2019-12-07] MEDS ORDERED: DIPHENHYDRAMINE HCL 50 MG/ML VIAL IV ONE (10:24)
[2019-12-07] MEDS ORDERED: FAMOTIDINE INJ/PF 20 MG/2 ML SDV IV ONE (10:25)
[2019-12-07 10:37] LABS: ABSOLUTE EOSINOPHILS # (AUTO) 0.2 10^3/uL (0.0-0.6); ABSOLUTE LYMPHOCYTES (AUTO) 1.4 10^3/uL (0.5-4.7); ABSOLUTE MONOCYTES (AUTO) 0.4 10^3/uL (0.1-1.4); ABSOLUTE NEUT (AUTO) 2.6 10^3/uL (1.7-8.2); BASOPHILS % (AUTO) 0.6 % (0-2); EOSINOPHILS % (AUTO) 3.6 % (0-6); HEMATOCRIT 33.1 % (36.0-47.0); HEMOGLOBIN 11.1 g/dL (12.0-15.5); LYMPHOCYTES % (AUTO) 30.5 % (13-45); MEAN CORPUSCULAR HEMOGLOBIN 29.6 pg (27.0-33.4); MEAN CORPUSCULAR HGB CONC 33.6 g/dL (32.0-36.0); MEAN CORPUSCULAR VOLUME 88 fl (80-97); MONOCYTES % (AUTO) 8.3 % (3-13); PLATELET COUNT 258 10^3/uL (150-450); RED BLOOD COUNT 3.75 10^6/uL (3.72-5.28); TOTAL CELLS COUNTED % (AUTO) 100 %; WHITE BLOOD COUNT 4.6 10^3/uL (4.0-10.5)
[2019-12-07] MEDS ORDERED: RACEPINEPHRINE HCL 2.25% NEB 0.5 ML AMPUL NEB ONE (10:39)
[2019-12-07 10:45] LABS: INTERNATIONAL RATION (INR) 1.14; PROTHROMBIN TIME 14.8 SEC (11.4-15.4)
[2019-12-07 10:46] LABS: PARTIAL THROMBOPLASTIN TIME 31.4 SEC (23.5-35.8)
[2019-12-07 10:51] LABS: ALKALINE PHOSPHATASE 102 U/L (38-126); ANION GAP 14 (5-19); ASPARTATE AMINO TRANSFERASE 23 U/L (14-36); BILIRUBIN,DIRECT 0.3 mg/dL (0.0-0.4); BILIRUBIN,TOTAL 0.6 mg/dL (0.2-1.3); BLOOD UREA NITROGEN 15 mg/dL (7-20); CALCIUM 9.9 mg/dL (8.4-10.2); CARBON DIOXIDE 24 mmol/L (22-30); CHLORIDE 96 mmol/L (98-107); GLUCOSE 384 mg/dL (75-110); POTASSIUM 3.1 mmol/L (3.6-5.0); TOTAL PROTEIN 8.1 g/dL (6.3-8.2)
--- NOTE | 2019-12-07 10:57 | RADIOLOGY REPORT (SQ) ---
EXAM DESCRIPTION: CHEST SINGLE VIEW IMAGES COMPLETED DATE/TIME: 12/07/2019 10:38 am REASON FOR STUDY: tongue swelling/sobr COMPARISON: 12/05/2019 EXAM PARAMETERS: NUMBER OF VIEWS: One view. TECHNIQUE: Single frontal radiographic view of the chest acquired. RADIATION DOSE: NA LIMITATIONS: None. FINDINGS: LUNGS AND PLEURA: No opacities, masses or pneumothorax. No pleural effusion. MEDIASTINUM AND HILAR STRUCTURES: No masses. Contour normal. HEART AND VASCULAR STRUCTURES: Heart normal in size. Normal vasculature. BONES: No acute findings. HARDWARE: None in the chest. OTHER: No other significant finding. IMPRESSION: NO ACUTE RADIOGRAPHIC FINDING IN THE CHEST. TECHNICAL DOCUMENTATION: JOB ID: [id number] 2010 [employer]- All Rights Reserved Reading location - IP/workstation name: [email or web address]
[2019-12-07 11:38] LABS: APPEARANCE,URINE CLOUDY; BILIRUBIN,URINE NEGATIVE (NEGATIVE); COLOR,URINE YELLOW; GLUCOSE, URINE >=500 mg/dL (NEGATIVE); KETONES,URINE NEGATIVE (NEGATIVE); LEUKOCYTE ESTERASE,URINE TRACE (NEGATIVE); NITRITE,URINE NEGATIVE (NEGATIVE); PROTEIN,URINE NEGATIVE (NEGATIVE); URINE SPECIFIC GRAVITY 1.022; UROBILINOGEN,URINE NEGATIVE mg/dL (<2.0)
--- NOTE | 2019-12-07 14:10 | ER Document Report ---
Entered by CADENCE BASS SCRIBE 12/07/19 1026 Acting as scribe for:FEDE VEGA MD ED General - General Chief Complaint: Facial Swelling Stated Complaint: FACIAL/NECK SWELLING Primary Care Provider: OMEGA FERGUSON MD [Primary Care Provider] - Follow up as needed Mode of Arrival: Ambulatory Information source: Patient, Relative - Notes: This 84 year old female patient presents to the ED today with complaints of tongue swelling that started yesterday evening. Patient states she did not take any antihistamines prior to arrival or her morning medications. at bedside reports that the patient did take her evening medications last night, bu t doesn't remember if the swelling started prior to or after taking those medications. Patient denies any difficulty swallowing, sore throat, shortness of breath, or wheezing. Her PCP is Dr. Ferguson and she has an appointment with him tomorrow morning. Past medical history includes: HTN, HLD, CAD, DVT/PE on Warfarin, and DM. TRAVEL OUTSIDE OF THE [place] IN LAST 30 DAYS: No - Related Data Allergies/Adverse Reactions: No Known Allergies Allergy (Verified 09/23/19 23:05) Past Medical History - General Information source: Patient, [facility] Records - Social History Smoking Status: Never Smoker Cigarette use (# per day): No Chew tobacco use (# tins/day): No Smoking Education Provided: No Frequency of alcohol use: None Drug Abuse: None Lives with: Spouse/Significant other Family History: Reviewed & Not Pertinent Patient has suicidal ideation: No Patient has homicidal ideation: No - Past Medical History Cardiac Medical History: Reports: Hx Atrial Fibrillation, Hx Congestive Heart Failure, Hx Coronary Artery Disease, Hx DVT, Hx Heart Attack, Hx Hypercholes terolemia, Hx Hypertension, Hx Pulmonary Embolism, Hx Heart Murmur Pulmonary Medical History: Reports: Hx Pneumonia Endocrine Medical History: Reports: Hx Diabetes Mellitus Type 2 GI Medical History: Reports: Hx Gastroesophageal Reflux Disease, Hx Ulcer Musculoskeletal Medical History: Reports Hx Arthritis - GERNERALIZED, Reports Hx Muscle Weakness - rt arm, Reports Hx Musculoskeletal Trauma Psychiatric Medical History: Reports: Hx Depression Past Surgical History: Reports: Hx Abdominal Surgery - Right hemicolectomy for tubular adenoma, Hx Cardiac Catheterization, Hx Coronary Stent, Hx Hysterectomy, Hx Oral Surgery, Hx Orthopedic Surgery - knee replacement, foot surgery, Hx Vascular Surgery - IVC filter - Immunizations Immunizations up to date: Yes Hx Diphtheria, Pertussis, Tetanus Vaccination: Yes Review of Systems - Review of Systems Constitutional: No symptoms reported EENT: See HPI, Mouth swelling - tongue. denies: Throat pain, Difficulty swallowing, Throat swelling Cardiovascular: No symptoms reported Respiratory: See HPI. denies: Short of breath, Wheezing Gastrointestinal: No symptoms reported Genitourinary: No symptoms reported Female Genitourinary: No symptoms reported Musculoskeletal: No symptoms reported Skin: No symptoms reported Hematologic/Lymphatic: No symptoms reported Neurological/Psychological: No symptoms reported -: Yes All other systems reviewed and negative Physical Exam - Vital signs Vitals: Temp 98.2 F 12/07/19 09:24 - General General appearance: Alert In distress: None - HEENT Head: Normocephalic, Atraumatic Eyes: Normal Pupils: PERRL Mouth/Lips: Other - Mild sublingual edema - Respiratory Respiratory status: No respiratory distress, Other - Airway is patent Chest status: Nontender Breath sounds: Normal. No: Wheezing Chest palpation: Normal - Cardiovascular Rhythm: Regular Heart sounds: Normal auscultation, S1 appreciated, S2 appreciated Murmur: No Friction rub: No Gallop: None auscultated - Abdominal Inspection: Normal Distension: No distension Bowel sounds: Normal Tenderness: Nontender - Abdomen soft Organomegaly: No organomegaly - Back Back: Normal, Nontender - Extremities General upper extremity: Normal inspection General lower extremity: Normal inspection. No: Edema - Neurological Neuro grossly intact: Yes Cognition: Normal Orientation: AAOx4 [place] Coma Scale Eye Opening: Spontaneous [place] Coma Scale Verbal: Oriented Jae Coma Scale Motor: Obeys Commands [place] Coma Scale Total: 15 Speech: Normal - Clear - Psychological Associated symptoms: Normal affect, Normal mood - Skin Skin Temperature: Warm Skin Moisture: Dry Skin Color: Normal Course - Re-evaluation Re-evalutation: 12/07/19 13:46 Patient resting comfortably easily aroused. Patient's tongue swelling has diminished back to its normal sinus. Patient has no airway problem no shortness of breath no itching at this time. Patient's at bedside agrees that patient appears back to her normal self. - Vital Signs Vital signs: Temp Pulse Resp BP Pulse Ox 98.7 F 77 22 H 114/57 L 97 12/07/19 09:30 12/07/19 09:30 12/07/19 13:01 12/07/19 13:01 12/07/19 13:01 12/07/19 13:46 Vital signs stable - Laboratory Result Diagrams: 12/07/19 10:12/07/19 10:20 Laboratory results interpreted by me: 12/07/19 12/07/19 12/07/19 09:45 10:20 10:20 Hgb 11.1 L Hct 33.1 L RDW 15.0 H Sodium 134.3 L Potassium 3.1 L Chloride 96 L Creatinine 1.28 H Est GFR ( Amer) 48 L Est GFR (MDRD) Non-Af 40 L Glucose 384 H Urine Glucose (UA) >=500 H Ur Leukocyte Esterase TRACE H Chemistries show a potassium of 3.1 blood sugar 384 patient did receive IV Solu- Medrol which will raise her blood sugar. Patient will has been explained that concept. Patient has yet to take her a.m. medications. Regarding a.m. medications I have recommended patient do not take her amlodipine/benazepril tablet today. Patient has an appointment with Dr. Yojana Huang in the morning. 12/07/19 13:48 12/07/19 10:20 12/07/19 10:20 MCV 88 fl (80-97) 12/07/19 10:20 MCH 29.6 pg (27.0-33.4) 12/07/19 10:20 MCHC 33.6 g/dL (32.0-36.0) 12/07/19 10:20 RDW 15.0 % (11.5-14.0) H 12/07/19 10:20 Seg Neutrophils % 57.0 % (42-78) 12/07/19 10:20 Chloride 96 mmol/L (98-107) L 12/07/19 10:20 Carbon Dioxide 24 mmol/L (22-30) 12/07/19 10:20 Anion Gap 14 (5-19) 12/07/19 10:20 Est GFR ( Amer) 48 (>60) L 12/07/19 10:20 Glucose 384 mg/dL (75-110) H 12/07/19 10:20 Calcium 9.9 mg/dL (8.4-10.2) 12/07/19 10:20 Total Bilirubin 0.6 mg/dL (0.2-1.3) 12/07/19 10:20 AST 23 U/L (14-36) 12/07/19 10:20 Alkaline Phosphatase 102 U/L (38-126) 12/07/19 10:20 Total Protein 8.1 g/dL (6.3-8.2) 12/07/19 10:20 Albumin 4.0 g/dL (3.5-5.0) 12/07/19 10:20 Urine Color YELLOW 12/07/19 09:45 Urine Appearance CLOUDY 12/07/19 09:45 Urine pH 5.0 (5.0-9.0) 12/07/19 09:45 Ur Specific [place] 1.022 12/07/19 09:45 Urine Protein NEGATIVE mg/dL (NEGATIVE) 12/07/19 09:45 Urine Glucose (UA) >=500 mg/dL (NEGATIVE) H 12/07/19 09:45 Urine Ketones NEGATIVE mg/dL (NEGATIVE) 12/07/19 09:45 Urine Blood NEGATIVE (NEGATIVE) 12/07/19 09:45 Urine Nitrite NEGATIVE (NEGATIVE) 12/07/19 09:45 Ur Leukocyte Esterase TRACE (NEGATIVE) H 12/07/19 09:45 Urine WBC (Auto) 1 /HPF 12/07/19 09:45 Urine RBC (Auto) 2 /HPF 12/07/19 09:45 Blood Type B POSITIVE 12/07/19 11:30 Antibody Screen NEGATIVE 12/07/19 11:30 - Diagnostic Test Radiology reviewed: Image reviewed, Reports reviewed Radiology results interpreted by me: 12/07/19 13:48 Chest X-Ray 12/07/19 10:28 IMPRESSION: NO ACUTE RADIOGRAPHIC FINDING IN THE CHEST. Chest x-ray shows no acute process. - EKG Interpretation by Me Additional EKG results interpreted by me: 12/07/19 13:49 Twelve-lead EKG shows a normal sinus rhythm rate of 60 left atrial abnormality right bundle branch block and a left anterior fascicular block patient has a left axis deviation a widened QRS with a right bundle branch block. OH interval is within normal limits QT interval within normal limits. No signs of an acute STEMI. Discharge - Discharge Clinical Impression: Angioedema of tongue, Hyperglycemia Condition: Stable Disposition: HOME, SELF-CARE Additional Instructions: Hyperglycemia (High Blood Sugar) You have an abnormally high blood sugar. Not all high blood sugar requires long-term treatment. High blood sugar can be due to medications, , or the stress of illness. (These cases are "borderline diabetes.") If the doctor feels your high blood sugar might resolve with time, you may not require treatment now. You will be scheduled for further evaluation. It's very important that you follow through, to see if the blood sugar returns to normal levels. Uncontrolled high blood sugar leads to early heart disease, strokes, nerve damage, eye damage, and kidney damage. Your blood sugar is elevated today for couple reasons 1 the stress of the angioedema as well as the treatment using IV Solu-Medrol which raises blood sugar please monitor your blood sugar closely. I have not added further steroids for you to take therefore your sugar should return back to normal with your usual medications and diet plan. Call the physician if there is faintness, excess sleepiness, or very rapid breathing.Angioedema Angioedema is an allergic swelling of the soft tissues of the body. The lips and mouth are most commonly involved. Medicication allergy is a common cause, especially ELE inhibitor medicine (used for blood pressure control). Food, even something you've eaten frequently, can cause angioedema. In many cases it's not obvious what caused the swelling. Acute treatment may include adrenalin and antihistamines. If the cause is kn own, you must avoid this food or medicine in the future. If angioedema affects your air passages, it can be life-threatening.Return at once if you develop shortness of breath, faintness, severe pain, inability to swallow, or if swelling worsens.swelling worsens. I have noticed that you are on a blood pressure medicine that may be part of the reason for this soft tissue tongue swelling. The name of the medication that I am suspicious of is amlodipine/Benzapril which is a blood pressure tablet that you take please discontinue taking it until further instructions from your primary care physician who is Dr. Ferguson understand you have an appointment with him tomorrow and your blood pressure today is very normal so I think that you can withhold that medication today for further instructions tomorrow. I am placing you on 2 medications one is Benadryl and the other is Pepcid to continue to keep angioedema from reoccurring. Prescriptions: Diphenhydramine HCl [Benadryl 25 mg Capsule] 25 mg PO QID PRN #20 capsule PRN Reason: Famotidine [Pepcid 20 mg Tablet] 20 mg PO BID #12 tablet Referrals: OMEGA FERGUSON MD [Primary Care Provider] - Follow up as needed I personally performed the services described in the documentation, reviewed and edited the documentation which was dictated to the scribe in my presence, and it accurately records my words and actions.
[2019-12-07 14:36] VITALS: BP 134/64
--- NOTE | 2019-12-07 23:12 | EKG REPORT ---
SEVERITY:- ABNORMAL ECG - SINUS RHYTHM RIGHT BUNDLE BRANCH BLOCK : Confirmed by: Coby Hawkins MD 07-Dec-2019 23:12:29
== END 2019-12-07 14:36 | disposition home or self-care (01) ==
LOC: ER 09:24
DX: T78.3XXA Angioneurotic edema, initial encounter (principal); E11.65 Type 2 diabetes mellitus with hyperglycemia; I25.10 Atherosclerotic heart disease of native coronary artery without angina pectoris; I45.2 Bifascicular block; I10 Essential (primary) hypertension; Z79.01 Long term (current) use of anticoagulants; Z86.711 Personal history of pulmonary embolism; Z86.718 Personal history of other venous thrombosis and embolism; Z79.899 Other long term (current) drug therapy
CPT/HCPCS: 93005; 94640; 99285; 96374; 96375; 86900; 86901; 36415; 86850; 85025; 85610; 85730; 80053; 81001; 71045; 93010; J1200; J2930; S0028; J3490